=== PATIENT | male | born 1945 | race Caucasian/White ===

== ENCOUNTER 2016-06-25 09:47 | Emergency (ER) | payer MEDICARE, OTHER ==
[~2016-06-25] VITALS: Ht 166.4 cm; Wt 80.3 kg
[~2016-06-25 09:47] MED LIST: ACET325T9 PO; AMIO200T2 PO; ASPI81TA2 PO; CRESTOR20 MG PO; DABI150C PO; DIPH25CA58 PO; ESOM40CA PO; L.AC1CAP6 PO; LISI-338 PO; MELA3TAB PO; METO25TA4 PO; METO50TA2 PO; NEPA3DRO OP; OXYC-323 PO; OXYC5TAB PO; SUCR1ORA2 PO; TAMS0.4C2 PO; TRAM-29 PO; [UNRECOGNIZED DRUG - CODE] PO
[2016-06-25 09:50] VITALS: BP 134/88
--- NOTE | 2016-06-25 10:09 | ED.ADGEN ---
Past History Past Medical History: A-Fib, CAD, GERD, High Cholesterol, Hypertension, Hyperthyroid, Other Past Surgical History: Pacemaker, Other Smoking: Non-smoker Alcohol Use: Rarely Drug Use: None Adult General HPI HPI Patient is a 71-year-old male with an extensive cardiac history presents to the emergency department. He describes to me that he is having his chronic dizziness he has had since his pacemaker placement. He is currently under the care of an ENT and a accounts administrator. His dizziness today is not different than it has been. He also notes some right hand swelling. He states this is happened multiple times in the past and is not a new issue. The primary reason for coming to the emergency department today is that last night he ate at home which is unusual for him. He later had some epigastric "discomfort" and had difficulty sleeping through the night. This morning he had "severe" diarrhea. He denies any chest pain, dyspnea, abdominal pain, nausea, or vomiting. Review of Systems Review of Systems Constitutional: Denies fever or chills [] Eyes: Denies change in visual acuity, redness, or eye pain [] HENT: Denies nasal congestion or sore throat [] Respiratory: Denies cough or shortness of breath [] Cardiovascular: No additional information not addressed in HPI [] GI: Denies abdominal pain, nausea, vomiting, bloody stools or diarrhea [] : Denies dysuria or hematuria [] Musculoskeletal: Denies back pain or joint pain [] Integument: Denies rash or skin lesions [] Neurologic: Denies headache, focal weakness or sensory changes [] Endocrine: Denies polyuria or polydipsia [] Allergies Allergies Allergies Coded Allergies Type Severity Reaction Last Updated Verified clindamycin Allergy Intermediate rash 01/15/16 Yes morphine Allergy Intermediate vomiting 01/15/16 Yes Physical Exam Physical Exam Constitutional: Well developed, well nourished, no acute distress, non-toxic appearance. [] HENT: Normocephalic, atraumatic, bilateral external ears normal, oropharynx moist, no oral exudates, nose normal. [] Eyes: PERRLA, EOMI, conjunctiva normal, no discharge. [] Neck: Normal range of motion, no tenderness, supple, no stridor. [] Cardiovascular:Heart rate regular rhythm, no murmur [] Lungs & Thorax: Bilateral breath sounds clear to auscultation [] Abdomen: Bowel sounds normal, soft, no tenderness, no masses, no pulsatile masses. [] Skin: Warm, dry, no erythema, no rash. [] Back: No tenderness, no CVA tenderness. [] Extremities: No tenderness, no cyanosis, no clubbing, ROM intact, right hand has mild edema diffusely. [] Neurologic: Alert and oriented X 3, normal motor function, normal sensory function, no focal deficits noted. [] Psychologic: Affect normal, judgement normal, mood normal. [] Current Patient Data Lab Results Laboratory Tests Test 06/25/16 10:12 06/25/16 10:33 06/25/16 11:08 White Blood Count 4.2x10^3/uL (4.0-11.0) Red Blood Count 4.43x10^6/uL (4.30-5.70) Hemoglobin 13.9g/dL (13.0-17.5) Hematocrit 42.3% (39.0-53.0) Mean Corpuscular Volume 96fL (79-100) Mean Corpuscular Hemoglobin 31pg (25-35) Mean Corpuscular Hemoglobin Concent 33g/dL (31-37) Red Cell Distribution Width 13.4% (11.5-14.5) Platelet Count 198x10^3/uL (140-400) Neutrophils (%) (Auto) 44% (31-73) Lymphocytes (%) (Auto) 37% (24-48) Monocytes (%) (Auto) 10% (0-9) H Eosinophils (%) (Auto) 7% (0-3) H Basophils (%) (Auto) 2% (0-3) Neutrophils # (Auto) 1.9x10^3uL (1.8-7.7) Lymphocytes # (Auto) 1.6x10^3/uL (1.0-4.8) Monocytes # (Auto) 0.4x10^3/uL (0.0-1.1) Eosinophils # (Auto) 0.3x10^3/uL (0.0-0.7) Basophils # (Auto) 0.1x10^3/uL (0.0-0.2) Magnesium Level 2.3mg/dL (1.8-2.4) POC Hemoglobin 13.6gm/dL POC Hematocrit 40% POC Sodium 145mmol/L (135-145) POC Potassium 4.4mmol/L (3.5-5.0) POC Chloride 107mmol/L (98-110) POC Total CO2 24mmol/L (23-32) Anion Gap 20mmol/L (6-14) H POC Blood Urea Nitrogen 12mg/dL (8-26) POC Creatinine 1.2mg/dL (0.5-1.4) Glucose Level 95mg/dL (60-99) POC Ionized Calcium (Harper) 1.20mmol/L (1.13-1.32) Urine Collection Type Unknown Urine Color Yellow Urine Clarity Clear Urine pH 6.5 Urine Specific [place] 1.020 Urine Protein Neg (NEG-TRACE) Urine Glucose (UA) Negmg/dL (NEG) Urine Ketones (Stick) Negmg/dL (NEG) Urine Blood Neg (NEG) Urine Nitrite Neg (NEG) Urine Bilirubin Neg (NEG) Urine Urobilinogen Dipstick 2mg/dL (0.2 mg/dL) Urine Leukocyte Esterase Small (NEG) Urine RBC 1-2/HPF (0-2) Urine WBC 5-10/HPF (0-4) Urine Squamous Epithelial Cells Few/LPF Urine Bacteria Few/HPF (0-FEW) Urine Mucus Slight/LPF EKG EKG EKG interpreted by me, normal sinus rhythm, 82 beats for minute, leftward axis, right bundle-branch block, no ST segment elevation[] Radiology/Procedures Radiology/Procedures Indication chest pain. A single view of the chest was obtained and is compared to a study 03/16/2015. Postoperative changes and a bipolar cardiac pacing device are noted. The heart and pulmonary vessels are normal. The lungs are clear. There is no pleural fluid or pneumothorax. A significant change compared to the previous exam is not seen. IMPRESSION: No acute or significant finding apparent in the chest DICTATED AND SIGNED BY: JUAN SANCHEZ MD DATE: 06/25/16 1040 CC: MASON GALO MD; CORAZON RAND MD ~[] Course & Med Decision Making Course & Med Decision Making Pertinent Labs and Imaging studies reviewed. (See chart for details) Patient is a very reassuring workup. I do not find anything acute or abnormal. His hand swelling has resolved. At this point the patient is being sent home with supportive care and follow-up directions. [] Final Impression Final Impression Peripheral edema [] Problems: Dragon Disclaimer Dragon Disclaimer This electronic medical record was generated, in whole or in part, using a voice recognition dictation system. MASON GALO MD Jun 25, 2016 10:09
[2016-06-25 10:35] LABS: BASO # 0.1 x10^3/uL (0.0-0.2); BASO % 2 % (0-3); EOS # 0.3 x10^3/uL (0.0-0.7); EOS % 7 % (0-3); HEMATOCRIT 42.3 % (39.0-53.0); HEMOGLOBIN 13.9 g/dL (13.0-17.5); LYMPH # 1.6 x10^3/uL (1.0-4.8); LYMPH % 37 % (24-48); MEAN CORPUSCULAR HEMOGLOBIN 31 pg (25-35); MEAN CORPUSCULAR HGB CONC 33 g/dL (31-37); MEAN CORPUSCULAR VOLUME 96 fL (79-100); MONO # 0.4 x10^3/uL (0.0-1.1); MONO % 10 % (0-9); NEUT # 1.9 x10^3uL (1.8-7.7); NEUT % 44 % (31-73); PLATELET COUNT 198 x10^3/uL (140-400); RED BLOOD COUNT 4.43 x10^6/uL (4.30-5.70); RED CELL DISTRIBUTION WIDTH 13.4 % (11.5-14.5); WHITE BLOOD COUNT 4.2 x10^3/uL (4.0-11.0)
[2016-06-25 10:42] LABS: HEMOGLOBIN ISTAT 13.6 gm/dL; POTASSIUM ISTAT 4.4 mmol/L (3.5-5.0)
--- NOTE | 2016-06-25 10:43 | RAD ---
Indication chest pain. A single view of the chest was obtained and is compared to a study 03/16/2015. Postoperative changes and a bipolar cardiac pacing device are noted. The heart and pulmonary vessels are normal. The lungs are clear. There is no pleural fluid or pneumothorax. A significant change compared to the previous exam is not seen. IMPRESSION: No acute or significant finding apparent in the chest
[2016-06-25 11:49] LABS: BILIRUBIN,URINE NEG (NEG); CLARITY,URINE CLEAR; COLOR,URINE YELLOW; GLUCOSE,URINE NEG (NEG); NITRITE,URINE NEG (NEG); UROBILINOGEN,URINE 2 mg/dL (0.2 mg/dL)
[2016-06-25 11:50] LABS: BACTERIA,URINE FEW /HPF (0-FEW); SQUAMOUS EPITHELIAL CELL,UR FEW /LPF
--- NOTE | 2016-06-26 12:28 | EKG ---
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
== END 2016-06-25 11:40 | disposition home or self-care (01) ==
LOC: ER 09:47
DX: R60.0 Localized edema (principal); R42 Dizziness and giddiness; R19.7 Diarrhea, unspecified; E78.00 Pure hypercholesterolemia, unspecified; I10 Essential (primary) hypertension; I25.10 Atherosclerotic heart disease of native coronary artery without angina pectoris; I48.91 Unspecified atrial fibrillation; K21.9 Gastro-esophageal reflux disease without esophagitis; Z95.0 Presence of cardiac pacemaker; E05.90 Thyrotoxicosis, unspecified without thyrotoxic crisis or storm; Z88.1 Allergy status to other antibiotic agents; Z88.5 Allergy status to narcotic agent
CPT/HCPCS: 36415; 71010; 80047; 81001; 83735; 85027; 87086; 87186; 93005; 99285-25

== ENCOUNTER → 2016-12-27 | Outpatient (CLI) | payer MEDICARE, OTHER ==
[~2016-12-27] MED LIST changes: +ASPI-630 PO; -ASPI81TA2 PO; -MELA3TAB PO; +MELA3TAB2 PO; -OXYC5TAB PO; +OXYC5TAB95 PO; -SUCR1ORA2 PO; +SUCR1ORA5 PO; -TRAM-29 PO; +TRAM-48 PO
--- NOTE | 2016-12-27 11:24 | RAD ---
Examination: Ultrasound left lower extremity venous duplex History: History of left lower leg swelling, redness for 4 days. Comparison: None available Technique: Grayscale, color Doppler 2-D, spectral waveform analysis of the left lower extremity venous system were performed Findings: The visualized common femoral vein, superficial femoral vein, popliteal vein demonstrate normal compression and augmentation of flow. The visualized calf veins are patent. There is a small area of fall soft tissue edema identified in the left lateral calf region at the site of redness. Impression: 1. No evidence of deep venous thrombosis left lower extremity venous system. 2. Small area of soft tissue edema identified in the left lateral calf region could be secondary to soft tissue infection or cellulitis.
== END | disposition home or self-care (01) ==
LOC: US 10:23
PROVIDERS: ATTEND Nurse Practitioner Family
DX: R22.42 Localized swelling, mass and lump, left lower limb (principal)
CPT/HCPCS: 93971

== ENCOUNTER → 2017-05-05 | Outpatient (CLI) | payer MEDICARE, OTHER ==
[~2017-05-05] MED LIST changes: -METO50TA2 PO; +METO50TA6 PO
--- NOTE | 2017-05-05 15:47 | RAD ---
CT of the abdomen and pelvis without contrast, 05/05/2017: History: Left flank pain, hematuria Noncontrast scans were obtained through the urinary tract utilizing the renal stone protocol. This is a limited study for evaluation of the possibility of urinary tract calculi. There is a 6 mm obstructing calculus in the proximal left ureter at the L3-4 level. The ureter superior to this level and the left renal pelvis are mildly dilated. There is material of slightly increased density within the left renal pelvis probably representing hemorrhage or other debris in this patient with hematuria. No intrarenal calculi are identified. There is a 4.5 cm cyst arising from the lateral aspect of the left kidney. There is minimal periureteral edema on the left. The distal left ureter and partially filled urinary bladder are unremarkable. There is a 6.8 cm cyst arising from the lower pole of the right kidney. The right renal pelvis and ureter show no evidence of obstruction. There is minimal bilateral perinephric scarring and streaky edema. The unopacified liver is unremarkable. No dense gallstones are seen. No pancreatic mass is evident. There are several scattered pancreatic calcifications. The spleen is of normal size. There is moderate aortoiliac calcific plaquing. No abdominal or pelvic adenopathy is seen. The bowel loops are not dilated. No free air or free fluid is evident in the abdomen or pelvis. There are moderate scattered degenerative changes in the spine. IMPRESSION: 1. 6 mm obstructing calculus in the proximal left ureter. 2. Material of slightly increased density in the mildly dilated left renal pelvis probably represents blood products in this patient with hematuria. 3. Moderate-sized bilateral renal cysts. PQRS Compliance Statement: One or more of the following individualized dose reduction techniques were utilized for this examination: 1. Automated exposure control 2. Adjustment of the mA and/or kV according to patient size 3. Use of iterative reconstruction technique
== END | disposition home or self-care (01) ==
LOC: DXRAD 15:02
PROVIDERS: ATTEND Specialist
DX: N23 Unspecified renal colic (principal); N20.1 Calculus of ureter; N28.1 Cyst of kidney, acquired
CPT/HCPCS: 74176

== ENCOUNTER → 2017-06-20 | Outpatient (CLI) | payer MEDICARE, OTHER ==
--- NOTE | 2017-06-20 10:24 | CARD ---
MR#: [id number] Date of Study: 06/20/2017 Ordering Physician: FOREIGN DOMINGUEZ, Referring Physician: FOREIGN DOMINGUEZ, Tech: Elizabeth Duenas RDCS APPROVED REPORT EXAM: Two-dimensional and M-mode echocardiogram with Doppler and color Doppler. Other Information Quality : Fair INDICATION Dyspnea Cardiac Disease: CAD Surgery/Intervention CABG: Date: 2010 2D DIMENSIONS RVDd3.6 (2.9-3.5cm)Left Atrium(2D)3.9 (1.6-4.0cm) IVSd1.0 (0.7-1.1cm)Aortic Root(2D)3.2 (2.0-3.7cm) LVDd4.6 (3.9-5.9cm)LVOT Diameter2.1 (1.8-2.4cm) PWd1.1 (0.7-1.1cm)LVDs2.5 (2.5-4.0cm) FS (%) 30.0 %SV74.8 ml LVEF(%)60.0 (>50%) Aortic Valve AoV Peak Mike.103.6cm/sAoV VTI20.1cm AO Peak GR.4.3mmHgLVOT Peak Mike.113.1cm/s LVOT VTI 19.13cmAO Mean GR.2mmHg BETTE (VMAX)3.52qh3KCT (VTI)3.26cm2 Mitral Valve MV E Jgcfdqou68.1cm/sMV DECEL DFDV943qo MV A Zfqmmidm70.5cm/sE/A Ratio0.8 Tricuspid Valve TR P. Whsomeyg527zi/sRAP KWTEHLAO9lqDi TR Peak Gr.15wfPoWBVZ14aeAx Pulmonary Vein S1 Agllofnk64.1cm/sD2 Kwletvmw28.7cm/s LEFT VENTRICLE The left ventricle is normal size. There is normal left ventricular wall thickness. The left ventricu lar systolic function is normal. The Ejection Fraction is 55-60%. There is normal LV segmental wall m otion. Transmitral Doppler flow pattern is Grade I-abnormal relaxation pattern. RIGHT VENTRICLE The right ventricle is normal size. The right ventricular systolic function is normal. There is a pac emaker lead in the right ventricle. ATRIA The left atrium size is normal. The right atrium size is normal. A pacemaker is seen in the right atr ium consistent with history. The interatrial septum is intact with no evidence for an atrial septal d efect or patent foramen ovale as noted on 2-D or Doppler imaging. AORTIC VALVE The aortic valve is normal in structure and function. Doppler and Color Flow revealed no significant aortic regurgitation. There is no significant aortic valvular stenosis. MITRAL VALVE The mitral valve is calcified but opens well. There is no evidence of mitral valve prolapse. There is no mitral valve stenosis. Doppler and Color-flow revealed trace mitral regurgitation. TRICUSPID VALVE The tricuspid valve is normal in structure and function. Doppler and Color Flow revealed trace to mil d tricuspid regurgitation. There is mild pulmonary hypertension. The PA pressure was estimated at 33 mmHg. There is no tricuspid valve stenosis. PULMONIC VALVE The pulmonic valve is not well visualized. Doppler and Color Flow revealed no pulmonic valvular regur gitation. There is no pulmonic valvular stenosis. GREAT VESSELS The aortic root is normal in size. The ascending aorta is not well seen. The IVC is normal in size an d collapses >50% with inspiration. PERICARDIAL EFFUSION There is no evidence of significant pericardial effusion. Critical Notification Critical Value: No <Conclusion> The left ventricular systolic function is normal. The Ejection Fraction is 55-60%. There is normal LV segmental wall motion. Transmitral Doppler flow pattern is Grade I-abnormal relaxation pattern. A pacemaker is seen in the right atrium and righjt ventricle consistent with history. Trace mitral regurgitation. Trace to mild tricuspid regurgitation. There is mild pulmonary hypertension. The PA pressure was estimated at 33 mmHg. There is no evidence of significant pericardial effusion. Signed by : Arben Oakley, Electronically Approved : 06/20/2017 10:23:09
== END | disposition home or self-care (01) ==
LOC: ECHO 07:50
PROVIDERS: ATTEND Internal Medicine Cardiovascular Disease
DX: I25.10 Atherosclerotic heart disease of native coronary artery without angina pectoris (principal); I27.20 Pulmonary hypertension, unspecified; I36.1 Nonrheumatic tricuspid (valve) insufficiency; Z95.0 Presence of cardiac pacemaker
CPT/HCPCS: 93306

== ENCOUNTER 2019-04-12 15:48 | Emergency (ER) | payer MEDICARE, OTHER ==
[~2019-04-12] VITALS: Ht 165.1 cm; Wt 91.2 kg
[~2019-04-12 15:48] MED LIST changes: -AMIO200T2 PO; +AMIO200T4 PO; -MELA3TAB2 PO; +MELA3TAB56 PO; -OXYC-323 PO; +OXYC1TAB15 PO; +OXYC5TAB4 PO; -OXYC5TAB95 PO
[2019-04-12] MEDS ORDERED: IV NORMAL SALINE 1,000ML 1,000 ML IV ONE (16:00)
[2019-04-12] MEDS ORDERED: ONDANSETRON PF 4 MG/2 ML VIAL. IVP ONE (16:15)
--- NOTE | 2019-04-12 16:19 | PHYS DOC ---
Past History Past Medical History: A-Fib, CAD, COPD, GERD, High Cholesterol, Hypertension, Hyperthyroid, Other Past Surgical History: Coronary Bypass Surgery, Pacemaker, Other Smoking: Non-smoker Alcohol Use: None Drug Use: None Adult General Chief Complaint Chief Complaint: ABDOMINAL PAIN HPI HPI 74-year-old male presents with nausea, vomiting, and diarrhea. The patient has been vomiting since 8:00 this morning. He tells me he has not vomited in 30 years until today. Had multiple episodes. He feels generally worn out and weak at this point. He is not able to keep down any solids or liquids. He has some generalized abdominal cramping which started after the vomiting. He does not believe he is had a fever. No known sick contacts. He denies shortness of breath, chest pain or diaphoresis. He has no other complaints at this time. Review of Systems Review of Systems Constitutional: Denies fever or chills [] Eyes: Denies change in visual acuity, redness, or eye pain [] HENT: Denies nasal congestion or sore throat [] Respiratory: Denies cough or shortness of breath [] Cardiovascular: No additional information not addressed in HPI [] GI: Mild generalized abdominal pain, nausea, vomiting, diarrhea [] : Denies dysuria or hematuria [] Musculoskeletal: Denies back pain or joint pain [] Integument: Denies rash or skin lesions [] Neurologic: Denies headache, focal weakness or sensory changes [] Endocrine: Denies polyuria or polydipsia [] All other systems were reviewed and found to be within normal limits, except as documented in this note. Current Medications Current Medications Current Medications Medications (Trade) Dose Ordered Sig/Nathaly Start Time Stop Time Status Last Admin Dose Admin Ondansetron HCl (Zofran) 4 mg 1X ONCE 04/12/19 16:15 04/12/19 16:16 DC 04/12/19 16:10 4 MG Sodium Chloride 1,000 ml @ 1,000 mls/hr 1X ONCE 04/12/19 16:00 04/12/19 16:59 04/12/19 16:10 1,000 MLS/HR Allergies Allergies Allergies Coded Allergies Type Severity Reaction Last Updated Verified clindamycin Allergy Intermediate rash 04/12/19 Yes morphine Allergy Intermediate vomiting 04/12/19 Yes Physical Exam Physical Exam Constitutional: Well developed, well nourished, no acute distress, non-toxic appearance. [] HENT: Normocephalic, atraumatic, bilateral external ears normal, oropharynx moist, no oral exudates, nose normal. [] Eyes: PERRLA, EOMI, conjunctiva normal, no discharge. [] Neck: Normal range of motion, no tenderness, supple, no stridor. [] Cardiovascular:Heart rate regular rhythm, no murmur [] Lungs & Thorax: Bilateral breath sounds clear to auscultation [] Abdomen: Bowel sounds normal, soft, mild generalized tenderness, no masses, no pulsatile masses. [] Skin: Warm, dry, no erythema, no rash. [] Back: No tenderness, no CVA tenderness. [] Extremities: No tenderness, no cyanosis, no clubbing, ROM intact, no edema. [] Neurologic: Alert and oriented X 3, normal motor function, normal sensory function, no focal deficits noted. [] Psychologic: Affect normal, judgement normal, mood normal. [] Current Patient Data Vital Signs Vital Signs Date Time Temp Pulse Resp B/P (MAP) Pulse Ox O2 Delivery O2 Flow Rate FiO2 04/12/19 16:01 97.5 109 20 96 Room Air EKG EKG Sinus rhythm, rate 98, leftward axis couple) which will cover it was too elevations or depressions.[] Radiology/Procedures Radiology/Procedures [] Course & Med Decision Making Course & Med Decision Making Pertinent Labs and Imaging studies reviewed. (See chart for details) The patient's labs are significant for an elevated creatinine 1.8 and a mildly elevated anion gap. After reviewing his chart, these are higher than his normal, but his results are 5 years old in the system. I also believe that this is acute due to his violent vomiting and diarrhea. We'll give the patient 4 mg of Zofran and a liter of normal saline. He has not had anymore vomiting. He feels much better at this time. He would like to go home and continue to hydrate orally. I believe this is reasonable. [place] so he could call an ambulance if he needed one. His family is okay with this plan and will check on him. I will discharge him a prescription for Zofran and have advised him not to use it too much due to his cardiac history. He is stable for discharge at this time. [] Shaun Disclaimer Dragon Disclaimer This electronic medical record was generated, in whole or in part, using a voice recognition dictation system. Departure Departure: Impression: Primary Impression: Nausea & vomiting Additional Impressions: Dehydration Elevated serum creatinine Disposition: HOME, SELF-CARE Condition: STABLE Referrals: CORAZON RAND MD (PCP) Patient Instructions: Nausea and Vomiting, Epyi-yk-Snho Scripts Ondansetron (ONDANSETRON ODT) 4 Mg Tab.rapdis 1 TAB PO PRN Q6-8HRS PRN for VOMITING, #16 TAB Prov: RODOLFO WOODRUFF DO 04/12/19 Problem Qualifiers Primary Impression: Nausea & vomiting Vomiting type: unspecified Vomiting Intractability: intractable Qualified Codes: R11.2 - Nausea with vomiting, unspecified RODOLFO WOODRUFF DO Apr 12, 2019 16:19
[2019-04-12 16:31] LABS: BASO # 0.1 x10^3/uL (0.0-0.2); BASO % 1 % (0-3); EOS % 0 % (0-3); HEMATOCRIT 44.7 % (39.0-53.0); HEMOGLOBIN 15.3 g/dL (13.0-17.5); LYMPH # 0.2 x10^3/uL (1.0-4.8); LYMPH % 2 % (24-48); MEAN CORPUSCULAR HEMOGLOBIN 32 pg (25-35); MEAN CORPUSCULAR HGB CONC 34 g/dL (31-37); MEAN CORPUSCULAR VOLUME 94 fL (79-100); MONO # 0.5 x10^3/uL (0.0-1.1); MONO % 5 % (0-9); NEUT # 9.1 x10^3uL (1.8-7.7); NEUT % 92 % (31-73); PLATELET COUNT 191 x10^3/uL (140-400); RED BLOOD COUNT 4.75 x10^6/uL (4.30-5.70); RED CELL DISTRIBUTION WIDTH 13.7 % (11.5-14.5); WHITE BLOOD COUNT 9.9 x10^3/uL (4.0-11.0)
[2019-04-12 16:36] LABS: CALCIUM 8.5 mg/dL (8.5-10.1); CREATININE 1.8 mg/dL (0.7-1.3); GFR 36.9; POTASSIUM 4.3 mmol/L (3.5-5.1)
[2019-04-12 16:42] LABS: ALBUMIN 3.4 g/dL (3.4-5.0); ALBUMIN/GLOBULIN RATIO 0.8 (1.0-1.7); TOTAL BILIRUBIN 1.2 mg/dL (0.2-1.0); TOTAL PROTEIN 7.5 g/dL (6.4-8.2)
[2019-04-12 16:57] VITALS: BP 121/56
[2019-04-12] MEDS ORDERED: ONDA4TAB12 PO (17:13)
--- NOTE | 2019-04-12 17:21 | EKG ---
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
== END 2019-04-12 17:16 | disposition home or self-care (01) ==
LOC: ER 15:48
DX: E86.0 Dehydration (principal); R74.8 Abnormal levels of other serum enzymes; I48.91 Unspecified atrial fibrillation; I25.810 Atherosclerosis of coronary artery bypass graft(s) without angina pectoris; J44.9 Chronic obstructive pulmonary disease, unspecified; K21.9 Gastro-esophageal reflux disease without esophagitis; E78.00 Pure hypercholesterolemia, unspecified; I10 Essential (primary) hypertension; E03.9 Hypothyroidism, unspecified; Z95.0 Presence of cardiac pacemaker; Z88.1 Allergy status to other antibiotic agents; Z88.5 Allergy status to narcotic agent
CPT/HCPCS: 36415; 80053; 85025; 93005; 96361; 96374; 99285; J2405; J7030

== ENCOUNTER 2019-05-20 09:52 | Emergency (ER) | payer MEDICARE, OTHER ==
[~2019-05-20] VITALS: Ht 165.1 cm; Wt 86.3 kg
[~2019-05-20 09:52] MED LIST changes: +ONDA4TAB12 PO
[2019-05-20 10:13] VITALS: BP 147/57
[2019-05-20] MEDS ORDERED: 0.9 % SODIUM CHLORIDE 10 ML DISP.SYRIN. IV PRN (10:30)
--- NOTE | 2019-05-20 10:41 | RAD ---
EXAM: Chest, single view. HISTORY: Cough. COMPARISON: 06/25/2016 FINDINGS: A frontal view of the chest is obtained. There is no infiltrate, pleural effusion or pneumothorax. There is evidence of prior median sternotomy and cardiac pacemaker placement. The heart is normal in size for portable technique. IMPRESSION: No acute pulmonary finding. Electronically signed by: Kimberly Muñoz MD (05/20/2019 10:38 AM) [facility] [place]
[2019-05-20 10:57] LABS: BASO # 0.1 x10^3/uL (0.0-0.2); BASO % 1 % (0-3); EOS % 0 % (0-3); HEMATOCRIT 41.8 % (39.0-53.0); HEMOGLOBIN 13.8 g/dL (13.0-17.5); LYMPH # 0.7 x10^3/uL (1.0-4.8); LYMPH % 8 % (24-48); MEAN CORPUSCULAR HEMOGLOBIN 32 pg (25-35); MEAN CORPUSCULAR HGB CONC 33 g/dL (31-37); MEAN CORPUSCULAR VOLUME 97 fL (79-100); MONO # 0.9 x10^3/uL (0.0-1.1); MONO % 10 % (0-9); NEUT # 7.5 x10^3uL (1.8-7.7); NEUT % 82 % (31-73); PLATELET COUNT 166 x10^3/uL (140-400); RED BLOOD COUNT 4.31 x10^6/uL (4.30-5.70); RED CELL DISTRIBUTION WIDTH 14.3 % (11.5-14.5); WHITE BLOOD COUNT 9.2 x10^3/uL (4.0-11.0)
[2019-05-20 11:01] LABS: CALCIUM 8.8 mg/dL (8.5-10.1); CREATININE 1.6 mg/dL (0.7-1.3); GFR 42.2; POTASSIUM 4.3 mmol/L (3.5-5.1)
--- NOTE | 2019-05-20 11:05 | PHYS DOC ---
Past History Past Medical History: A-Fib, CAD, COPD, GERD, High Cholesterol, Hypertension, Hyperthyroid, [place], Other Past Surgical History: Coronary Bypass Surgery, Pacemaker, Other Additional Past Surgical Histo: stents Smoking: Non-smoker Alcohol Use: None Drug Use: None Adult General Chief Complaint Chief Complaint: WEAKNESS/GENERALIZED HPI HPI Patient is a 74-year-old man who was brought here by his family for evaluation of general weakness, body ache, fever and chill, not feeling well for the last few day. Patient had been dealing with some GIs problem including some nausea, diarrhea off and on for about 5 weeks. Patient was seen here initially last month for same problem, checkup was normal, he was discharged home. Patient went to see his family doctor, he was put on probiotic. Patient had not been on antibiotics recently. He continued to have diarrhea off and on. He feels weak and dehydrated so he called his daughter who brought him here for evaluation. Patient c/o of ntermittent abdominal cramping for several weeks as well. Patient denies any blood in his stool. He denies any chest pain, no trouble breathing, no headache, no neck pain, NO COUGH. Review of Systems Review of Systems Constitutional: Positive for fever or chills [] Eyes: Denies change in visual acuity, redness, or eye pain [] HENT: Denies nasal congestion or sore throat [] Respiratory: Denies cough or shortness of breath [] Cardiovascular: No additional information not addressed in HPI [] GI: Positive for abdominal pain, NO nausea, vomiting, bloody stools, POSITIVE FOR diarrhea [] : Denies dysuria or hematuria [] Musculoskeletal: Positive for bodyache, joint pain Integument: Denies rash or skin lesions [] Neurologic: Denies headache, focal weakness or sensory changes [] Endocrine: Denies polyuria or polydipsia [] All other systems were reviewed and found to be within normal limits, except as documented in this note. Current Medications Current Medications Current Medications Medications (Trade) Dose Ordered Sig/Nathaly Start Time Stop Time Status Last Admin Dose Admin Sodium Chloride (Normal Saline Flush) 10 ml QSHIFT PRN 05/20/19 10:30 Allergies Allergies Allergies Coded Allergies Type Severity Reaction Last Updated Verified clindamycin Allergy Intermediate rash 04/12/19 Yes morphine Allergy Intermediate vomiting 04/12/19 Yes Physical Exam Physical Exam Constitutional: Well developed, well nourished, no acute distress, non-toxic appearance. [] HENT: Normocephalic, atraumatic, bilateral external ears normal, oropharynx is dry, no oral exudates, nose normal. [] Eyes: PERRLA, EOMI, conjunctiva normal, no discharge. [] Neck: Normal range of motion, no tenderness, supple, no stridor. [] Cardiovascular:Heart rate regular rhythm, no murmur [] Lungs & Thorax: Bilateral breath sounds clear to auscultation [] Abdomen: Bowel sounds normal, soft, there is tenderness midabdominal area, no masses, no pulsatile masses. [] Skin: Warm, dry, no erythema, no rash. [] Back: No tenderness, no CVA tenderness. [] Extremities: No tenderness, no cyanosis, no clubbing, ROM intact, no edema. [] Neurologic: Alert and oriented X 3, normal motor function, normal sensory function, no focal deficits noted. [] Psychologic: Affect normal, judgement normal, mood normal. [] Current Patient Data Vital Signs Vital Signs Date Time Temp Pulse Resp B/P (MAP) Pulse Ox O2 Delivery O2 Flow Rate FiO2 05/20/19 10:13 100.1 86 18 147/57 (87) 95 Room Air Lab Results Laboratory Tests Test 05/20/19 10:31 White Blood Count 9.2 x10^3/uL (4.0-11.0) Red Blood Count 4.31 x10^6/uL (4.30-5.70) Hemoglobin 13.8 g/dL (13.0-17.5) Hematocrit 41.8 % (39.0-53.0) Mean Corpuscular Volume 97 fL (79-100) Mean Corpuscular Hemoglobin 32 pg (25-35) Mean Corpuscular Hemoglobin Concent 33 g/dL (31-37) Red Cell Distribution Width 14.3 % (11.5-14.5) Platelet Count 166 x10^3/uL (140-400) Neutrophils (%) (Auto) 82 % (31-73) H Lymphocytes (%) (Auto) 8 % (24-48) L Monocytes (%) (Auto) 10 % (0-9) H Eosinophils (%) (Auto) 0 % (0-3) Basophils (%) (Auto) 1 % (0-3) Neutrophils # (Auto) 7.5 x10^3uL (1.8-7.7) Lymphocytes # (Auto) 0.7 x10^3/uL (1.0-4.8) L Monocytes # (Auto) 0.9 x10^3/uL (0.0-1.1) Eosinophils # (Auto) 0.0 x10^3/uL (0.0-0.7) Basophils # (Auto) 0.1 x10^3/uL (0.0-0.2) Sodium Level 139 mmol/L (136-145) Potassium Level 4.3 mmol/L (3.5-5.1) Chloride Level 103 mmol/L (98-107) Carbon Dioxide Level 26 mmol/L (21-32) Anion Gap 10 (6-14) Blood Urea Nitrogen 14 mg/dL (8-26) Creatinine 1.6 mg/dL (0.7-1.3) H Estimated GFR (Cockcroft-Gault) 42.2 BUN/Creatinine Ratio 9 (6-20) Glucose Level 104 mg/dL (70-99) H Calcium Level 8.8 mg/dL (8.5-10.1) Total Bilirubin Pending Aspartate Amino Transferase (AST) Pending Alanine Aminotransferase (ALT) Pending Alkaline Phosphatase Pending [id number]-Type Natriuretic Peptide Pending Total Protein Pending Albumin Pending Albumin/Globulin Ratio Pending EKG EKG [] Radiology/Procedures Radiology/Procedures [][address] [address] IMAGING REPORT Signed PATIENT: MELYSSA CHASE LACCOUNT: [id number] : 1945 LOCATION: ER AGE: 74 SEX: M EXAM STATUS: REG ER ORD. PHYSICIAN: GEOVANI SCHMIDT DO REASON: COUGH PROCEDURE: PORTABLE CHEST 1V EXAM: Chest, single view. HISTORY: Cough. COMPARISON: 06/25/2016 FINDINGS: A frontal view of the chest is obtained. There is no infiltrate, pleural effusion or pneumothorax. There is evidence of prior median sternotomy and cardiac pacemaker placement. The heart is normal in size for portable technique. IMPRESSION: No acute pulmonary finding. Electronically signed by: Kimberly Wharton MD (05/20/2019 10:38 AM) [facility] [place] AND SIGNED BY: KIMBERLY WHARTON MD DATE: 05/20/19 1038 CC: CORAZON RAND MD; GEOVANI SCHMIDT DO ~ [place] [address] IMAGING REPORT Signed PATIENT: MELYSSA CHASE LACCOUNT: [id number] : 1945 LOCATION: ER AGE: 74 SEX: M EXAM STATUS: REG ER ORD. PHYSICIAN: GEOVANI SCHMIDT DO REASON: ABDOMINAL PAIN, FEVER PROCEDURE: CT ABDOMEN PELVIS WO CONTRAST Examination: CT ABDOMEN PELVIS WO CONTRAST History: Abdominal pain and fever Comparison/Correlation: 05/05/2017 CT abdomen and pelvis without contrast Findings: Axial images of the abdomen and pelvis were obtained without contrast. Sagittal and coronal reformatted images were provided. Marked coronary arterial calcification is present. Sternal wires are present. Pacemaker leads are visualized. Small hiatal hernia is present. Posterior basilar linear discoid atelectasis is present. Left posterior granulomas are stable. Diffuse fatty infiltration of the liver is present. Cholelithiasis is present. A few calculi are visualized near the gallbladder neck region. Spleen is unremarkable. Pancreas is normal. Adrenal glands are normal. Bilateral renal cysts are present. Right renal lower pole cyst measuring 7 cm is present. Multiple smaller left renal cysts are present. These appear similar upon comparison with the previous exam with no suspicious features. No further follow-up required. No radiopaque collecting system calculi or collecting system obstruction. No enlarged abdominal or pelvic lymph nodes. No bowel obstruction. Small umbilical hernia containing omental fat is present. Diverticulosis is present without findings of acute inflammation. Appendix is normal. Urinary bladder is unremarkable. Prostate gland is mildly enlarged measuring 5 cm transverse. Moderate L4-5 5 and L5-S1 disc space narrowing is present. Neural foraminal narrowing is present bilaterally at L4-5 of moderate extent. Concentric disc bulge with spinal canal stenosis is present at L4-5. Impression: Hiatal hernia. No suspicious collections or inflammatory findings on this noncontrast exam. Diverticulosis. Fatty infiltration of the liver. Cholelithiasis. No biliary dilatation. PQRS Compliance Statement: One or more of the following individualized dose reduction techniques were utilized for this examination: 1. Automated exposure control 2. Adjustment of the mA and/or kV according to patient size 3. Use of iterative reconstruction technique Electronically signed by: Marlon Steele MD (05/20/2019 12:06 PM) [facility] DICTATED AND SIGNED BY: MARLON STEELE MD DATE: 05/20/19 1206 CC: CORAZON RAND MD; GEOVANI SCHMIDT DO ~ [place] [address] IMAGING REPORT Signed PATIENT: MELYSSA CHASE LACCOUNT: [id number] : 1945 LOCATION: ER AGE: 74 SEX: M EXAM STATUS: REG ER ORD. PHYSICIAN: GEOVANI SCHMIDT DO REASON: upper abdominal pain PROCEDURE: ABDOMEN LTD CLINICAL HISTORY: Upper abdominal pain COMPARISON: CT 05/20/2019 TECHNIQUE: Limited ultrasound examination of the right upper quadrant of the abdomen was performed FINDINGS: Visualized portions of the pancreas are unremarkable. Liver: The liver measures 16.9 cm in length in the right mid clavicular line. The hepatic margin is smooth and the hepatic echogenicity is normal. There is no focal abnormality of the liver. Portal venous flow is confirmed. Gallbladder/Biliary: Gallstones are seen within the gallbladder neck, nonmobile. There is no wall thickening or pericholecystic fluid. There is no pain with direct transducer pressure over the gallbladder.The common bile duct measures 0.2 cm. The right kidney measures 10.7 cm in bipolar length. 5.9 cm right lower pole renal cystic lesion is seen. There is no free fluid in the subhepatic space. IMPRESSION: 1. Nonmobile gallstone within the gallbladder neck. No sonographic evidence for acute cholecystitis. 2. 5.9 cm right lower pole renal cyst lesion is seen. Electronically signed by: Wayne Graf MD (05/20/2019 1:15 PM) [id number] DICTATED AND SIGNED BY: WAYNE GRAF MD DATE: 05/20/19 1315 CC: CORAZON RAND MD; GEOVANI SCHMIDT DO ~ Course & Med Decision Making Course & Med Decision Making Pertinent Labs and Imaging studies reviewed. (See chart for details) Patient is a 74-year-old male who was evaluated in the ER due to general weakness, fever and chill, diarrhea. Workup in the ER did not find any acute problem. Patient was found to have gallstone, however there is No evidence of cholecystitis. Patient was found to be dehydrated, he was given IV fluid, he felt much better. His blood was cultured. He has had diarrhea off and on for several months, he is not on any antibiotic at home prior to the diarrhea episode. Patient stated that he knew he had back problem, he has cyst in his kidney, lesions in his lung. Also has history of hiatal hernia. Patient will be discharged home with his family, he will need to follow with a GI doctor for further evaluation of his abdominal problem. We will call him if the blood culture come back positive for any bacteria. Patient and his family were amenable to plan of care. He was discharged in stable condition. Dragon Disclaimer Dragon Disclaimer This electronic medical record was generated, in whole or in part, using a voice recognition dictation system. Departure Departure: Impression: Primary Impression: Dehydration Additional Impressions: Diarrhea Viral syndrome Disposition: 01 HOME, SELF-CARE Condition: STABLE Referrals: CORAZON RAND MD (PCP) follow up with your doctor in 2 days for reevaluation. Patient Instructions: Dehydration, Adult, Diarrhea, Viral Syndrome Additional Instructions: Thank you for visiting our Emergency Department. We appreciate you trusting us with your care. If any additional problems come up don't hesitate to return to visit us. Please follow up with your primary care provider so they can plan additional care if needed and know about the problem that you had. If symptoms worsen come back to the Emergency Department. Any concerning symptoms that start such as chest pain, shortness of air, weakness or numbness on one side of the body, running high fevers or any other concerning symptoms return to the ER. Problem Qualifiers GEOVANI SCHMIDT DO May 20, 2019 11:05
[2019-05-20 11:14] LABS: ALBUMIN 3.4 g/dL (3.4-5.0); ALBUMIN/GLOBULIN RATIO 0.8 (1.0-1.7); TOTAL PROTEIN 7.5 g/dL (6.4-8.2)
[2019-05-20 11:15] LABS: INFLUENZA A PATIENT NEGATIVE (NEGATIVE); INFLUENZA B PATIENT NEGATIVE (NEGATIVE)
[2019-05-20] MEDS ORDERED: IV NORMAL SALINE 1,000ML 1,000 ML IV ONE (11:30)
[2019-05-20] MEDS ORDERED: ACETAMINOPHEN 500 MG TABLET PO ONE (11:30)
[2019-05-20 11:46] LABS: BILIRUBIN,URINE NEG (NEG); CLARITY,URINE HAZY; COLOR,URINE AMBER; GLUCOSE,URINE NEG (NEG)
[2019-05-20 11:47] LABS: BACTERIA,URINE FEW /HPF (0-FEW); NITRITE,URINE NEG (NEG); SQUAMOUS EPITHELIAL CELL,UR FEW /LPF
--- NOTE | 2019-05-20 12:08 | RAD ---
Examination: CT ABDOMEN PELVIS WO CONTRAST History: Abdominal pain and fever Comparison/Correlation: 05/05/2017 CT abdomen and pelvis without contrast Findings: Axial images of the abdomen and pelvis were obtained without contrast. Sagittal and coronal reformatted images were provided. Marked coronary arterial calcification is present. Sternal wires are present. Pacemaker leads are visualized. Small hiatal hernia is present. Posterior basilar linear discoid atelectasis is present. Left posterior granulomas are stable. Diffuse fatty infiltration of the liver is present. Cholelithiasis is present. A few calculi are visualized near the gallbladder neck region. Spleen is unremarkable. Pancreas is normal. Adrenal glands are normal. Bilateral renal cysts are present. Right renal lower pole cyst measuring 7 cm is present. Multiple smaller left renal cysts are present. These appear similar upon comparison with the previous exam with no suspicious features. No further follow-up required. No radiopaque collecting system calculi or collecting system obstruction. No enlarged abdominal or pelvic lymph nodes. No bowel obstruction. Small umbilical hernia containing omental fat is present. Diverticulosis is present without findings of acute inflammation. Appendix is normal. Urinary bladder is unremarkable. Prostate gland is mildly enlarged measuring 5 cm transverse. Moderate L4-5 5 and L5-S1 disc space narrowing is present. Neural foraminal narrowing is present bilaterally at L4-5 of moderate extent. Concentric disc bulge with spinal canal stenosis is present at L4-5. Impression: Hiatal hernia. No suspicious collections or inflammatory findings on this noncontrast exam. Diverticulosis. Fatty infiltration of the liver. Cholelithiasis. No biliary dilatation. PQRS Compliance Statement: One or more of the following individualized dose reduction techniques were utilized for this examination: 1. Automated exposure control 2. Adjustment of the mA and/or kV according to patient size 3. Use of iterative reconstruction technique Electronically signed by: Marlon Carvajal MD (05/20/2019 12:06 PM) [facility]
--- NOTE | 2019-05-20 13:18 | RAD ---
CLINICAL HISTORY: Upper abdominal pain COMPARISON: CT 05/20/2019 TECHNIQUE: Limited ultrasound examination of the right upper quadrant of the abdomen was performed FINDINGS: Visualized portions of the pancreas are unremarkable. Liver: The liver measures 16.9 cm in length in the right mid clavicular line. The hepatic margin is smooth and the hepatic echogenicity is normal. There is no focal abnormality of the liver. Portal venous flow is confirmed. Gallbladder/Biliary: Gallstones are seen within the gallbladder neck, nonmobile. There is no wall thickening or pericholecystic fluid. There is no pain with direct transducer pressure over the gallbladder.The common bile duct measures 0.2 cm. The right kidney measures 10.7 cm in bipolar length. 5.9 cm right lower pole renal cystic lesion is seen. There is no free fluid in the subhepatic space. IMPRESSION: 1. Nonmobile gallstone within the gallbladder neck. No sonographic evidence for acute cholecystitis. 2. 5.9 cm right lower pole renal cyst lesion is seen. Electronically signed by: Wayne Bee MD (05/20/2019 1:15 PM) [id number]
--- NOTE | 2019-05-20 13:59 | EKG ---
[address] [address] Test Date: 2019-05-20 Test Time: 10:57:56 Pat Name: MELYSSA CHASE Department: Room: Gender: M Production Grip: : 1945 Requested By: GEOVANI SCHMIDT Order Number: [id number] Reading MD: Measurements Intervals [place] Rate: 80 P: 41 ME: 190 QRS: 43 QRSD: 126 T: 36 QT: 368 QTc: 428 Interpretive Statements SINUS RHYTHM ATRIAL PREMATURE COMPLEX(ES) RIGHT BUNDLE BRANCH BLOCK RVH WITH REPOLARIZATION ABNORMALITY ABNORMAL ECG RI6.01 No previous ECG available for comparison
[2019-05-21] MEDS ORDERED: TIOT18CA IH (13:33)
[2019-05-21] MEDS ORDERED: TAMS0.4C97 PO (13:33)
[2019-05-21] MEDS ORDERED: OMEP20CA16 PO (13:33)
== END 2019-05-20 14:51 | disposition home or self-care (01) ==
LOC: ER 09:52
DX: E86.0 Dehydration (principal); B34.9 Viral infection, unspecified; I48.91 Unspecified atrial fibrillation; I25.10 Atherosclerotic heart disease of native coronary artery without angina pectoris; J44.9 Chronic obstructive pulmonary disease, unspecified; K21.9 Gastro-esophageal reflux disease without esophagitis; E78.5 Hyperlipidemia, unspecified; I10 Essential (primary) hypertension; I25.2 Old myocardial infarction; Z95.1 Presence of aortocoronary bypass graft; Z88.1 Allergy status to other antibiotic agents; Z88.5 Allergy status to narcotic agent
CPT/HCPCS: 36415; 71045; 74176; 76705; 80053; 81001; 83605; 83880; 84484; 85025; 85610; 85730; 87040; 87077; 87205; 87804; 93005; 96360; 99285; J7030

== ENCOUNTER 2019-05-21 09:22 | Inpatient (IN) | payer MEDICARE, OTHER ==
[~2019-05-21] VITALS: Ht 157.5 cm; Wt 92.4 kg
[2019-05-21] MEDS ORDERED: ONDANSETRON PF 4 MG/2 ML VIAL. IV PRN (09:45)
--- NOTE | 2019-05-21 09:47 | PHYS DOC ---
Past History Past Medical History: A-Fib, CAD, COPD, GERD, High Cholesterol, Hypertension, Hyperthyroid, [place], Other Past Surgical History: Coronary Bypass Surgery, Pacemaker, Other Additional Past Surgical Histo: stents Smoking: Non-smoker Alcohol Use: None Drug Use: None Adult General Chief Complaint Chief Complaint: ABNORMAL LABS [facility] [employer] HPI Patient is a 74-year-old male who was called back here due to positive blood culture, he was seen here yesterday due to fever and chill, his blood was collected, today IT came back positive for GRAM POSITIVE COCCI IN PAIRS AND CHAINS, SUGGESTIVE OF STREP, He said he is feeling better, but he still feels hot and chill. Denies any cough, no fever today, no headache, no chest pain, no abdominal pain, no trouble breathing. Review of Systems Review of Systems Constitutional: Denies fever , positive for chills [] Eyes: Denies change in visual acuity, redness, or eye pain [] HENT: Denies nasal congestion or sore throat [] Respiratory: Denies cough or shortness of breath [] Cardiovascular: No additional information not addressed in HPI [] GI: Denies abdominal pain, nausea, vomiting, bloody stools or diarrhea [] : Denies dysuria or hematuria [] Musculoskeletal: Denies back pain or joint pain [] Integument: Denies rash or skin lesions [] Neurologic: Denies headache, focal weakness or sensory changes [] Endocrine: Denies polyuria or polydipsia [] All other systems were reviewed and found to be within normal limits, except as documented in this note. Current Medications Current Medications Current Medications Medications (Trade) Dose Ordered Sig/Nathaly Start Time Stop Time Status Last Admin Dose Admin Ceftriaxone Sodium 1 gm/ Sodium Chloride 50 ml @ 100 mls/hr 1X ONCE 05/21/19 10:00 05/21/19 10:29 Ondansetron HCl (Zofran) 4 mg PRN Q4HRS PRN 05/21/19 09:45 05/22/19 09:44 Sodium Chloride 1,000 ml @ 75 mls/hr [id number] 05/21/19 09:43 05/22/19 09:42 Allergies Allergies Allergies Coded Allergies Type Severity Reaction Last Updated Verified clindamycin Allergy Intermediate rash 04/12/19 Yes morphine Allergy Intermediate vomiting 04/12/19 Yes Physical Exam Physical Exam Constitutional: Well developed, well nourished, no acute distress, non-toxic appearance. [] HENT: Normocephalic, atraumatic, bilateral external ears normal, oropharynx moist, no oral exudates, nose normal. [] Eyes: PERRLA, EOMI, conjunctiva normal, no discharge. [] Neck: Normal range of motion, no tenderness, supple, no stridor. [] Cardiovascular:Heart rate regular rhythm, no murmur [] Lungs & Thorax: Bilateral breath sounds clear to auscultation [] Abdomen: Bowel sounds normal, soft, no tenderness, no masses, no pulsatile masses. [] Skin: Warm, dry, no erythema, no rash. [] Back: No tenderness, no CVA tenderness. [] Extremities: No tenderness, no cyanosis, no clubbing, ROM intact, no edema. [] Neurologic: Alert and oriented X 3, normal motor function, normal sensory function, no focal deficits noted. [] Psychologic: Affect normal, judgement normal, mood normal. [] Current Patient Data Lab Results Laboratory Tests Test 05/21/19 09:37 White Blood Count 9.3 x10^3/uL Red Blood Count 4.21 x10^6/uL Hemoglobin 13.4 g/dL Hematocrit 40.5 % Mean Corpuscular Volume 96 fL Mean Corpuscular Hemoglobin 32 pg Mean Corpuscular Hemoglobin Concent 33 g/dL Red Cell Distribution Width 14.0 % Platelet Count 150 x10^3/uL Neutrophils (%) (Auto) 73 % Lymphocytes (%) (Auto) 12 % Monocytes (%) (Auto) 14 % Eosinophils (%) (Auto) 0 % Basophils (%) (Auto) 0 % Neutrophils # (Auto) 6.8 x10^3uL Lymphocytes # (Auto) 1.2 x10^3/uL Monocytes # (Auto) 1.3 x10^3/uL Eosinophils # (Auto) 0.0 x10^3/uL Basophils # (Auto) 0.0 x10^3/uL Sodium Level 138 mmol/L Potassium Level 4.1 mmol/L Chloride Level 103 mmol/L Carbon Dioxide Level 23 mmol/L Anion Gap 12 Blood Urea Nitrogen 16 mg/dL Creatinine 1.5 mg/dL Estimated GFR (Cockcroft-Gault) 45.5 BUN/Creatinine Ratio 11 Glucose Level 92 mg/dL Lactic Acid Level 1.6 mmol/L Calcium Level 8.2 mg/dL Magnesium Level 1.9 mg/dL Total Bilirubin 2.3 mg/dL Aspartate Amino Transf (AST/SGOT) 54 U/L Alanine Aminotransferase (ALT/SGPT) 34 U/L Alkaline Phosphatase 59 U/L Total Protein 7.1 g/dL Albumin 3.4 g/dL Albumin/Globulin Ratio 0.9 Current Medications Medications (Trade) Dose Ordered Sig/Nathaly Route PRN Reason Start Time Stop Time Status Last Admin Dose Admin Ceftriaxone Sodium 1 gm/ Sodium Chloride 50 ml @ 100 mls/hr 1X ONCE IV 05/21/19 10:00 05/21/19 10:29 DC 05/21/19 10:06 Ondansetron HCl (Zofran) 4 mg PRN Q4HRS PRN IV NAUSEA/VOMITING 05/21/19 09:45 05/22/19 09:44 05/21/19 10:06 Sodium Chloride 1,000 ml @ 75 mls/hr [id number] IV 05/21/19 09:43 05/22/19 09:42 05/21/19 10:05 Sodium Chloride 50 ml @ As Directed STK-MED ONCE .ROUTE 05/21/19 10:00 05/21/19 10:00 DC Ceftriaxone Sodium (Rocephin) 1 gm STK-MED ONCE .ROUTE 05/21/19 10:00 05/21/19 10:01 DC Acetaminophen (Tylenol) 650 mg QID PO 05/21/19 17:00 Aspirin (Children'S Aspirin) 81 mg DAILY PO 05/22/19 09:00 Dabigatran (Pradaxa) 150 mg BID PO 05/21/19 21:00 Diphenhydramine HCl (Benadryl) 25 mg QHS PO 05/21/19 21:00 UNV Metoprolol Tartrate (Lopressor) 25 mg BID PO 05/21/19 21:00 Metoprolol Tartrate (Lopressor) 2,500 mg DAILY PO 05/22/19 09:00 05/21/19 14:51 DC Ondansetron HCl (Zofran Odt) 4 mg Q4H PRN PO VOMITING 05/21/19 14:00 UNV Tamsulosin HCl (Flomax) 0.4 mg DAILY PO 05/22/19 09:00 Non-Formulary Medication (Esomeprazole Magnesium (Nexium Capsule)) 40 mg DAILYBFRLUN PO 05/22/19 11:30 UNV Non-Formulary Medication (Omeprazole ) 1 cap QODAY PO 05/23/19 09:00 UNV Atorvastatin Calcium (Lipitor) 80 mg QHS PO 05/21/19 21:00 Non-Formulary Medication (Tiotropium [place] (Spiriva)) 1 cap DAILY IH 05/22/19 09:00 UNV Lactobacillus Rhamnosus (Culturelle) 1 cap BID PO 05/21/19 21:00 Albuterol/ Ipratropium (Duoneb) 3 ml RTQID NEB 05/21/19 16:00 UNV EKG EKG [] Radiology/Procedures Radiology/Procedures [] Course & Med Decision Making Course & Med Decision Making Pertinent Labs and Imaging studies reviewed. (See chart for details) He is a 74-year-old male who was tested positive for gram-positive cocci, he will be admitted to hospital due to bacteremia, will be started IV Rocephin in the ER, further treatment will be dependent upon on the admitting physician, Dr. Elmore. Dragon Disclaimer Dragon Disclaimer This electronic medical record was generated, in whole or in part, using a voice recognition dictation system. Departure Departure: Impression: Primary Impression: Bacteremia Additional Impression: Bacteremia due to Gram-positive bacteria Disposition: ADMITTED INPATIENT Admitting Physician: Michael Elmore Condition: STABLE Referrals: CORAZON RAND MD (PCP) Problem Qualifiers GEOVANI SCHMIDT DO May 21, 2019 09:47
[2019-05-21 09:56] LABS: BASO % 0 % (0-3); EOS % 0 % (0-3); HEMATOCRIT 40.5 % (39.0-53.0); HEMOGLOBIN 13.4 g/dL (13.0-17.5); LYMPH # 1.2 x10^3/uL (1.0-4.8); LYMPH % 12 % (24-48); MEAN CORPUSCULAR HEMOGLOBIN 32 pg (25-35); MEAN CORPUSCULAR HGB CONC 33 g/dL (31-37); MEAN CORPUSCULAR VOLUME 96 fL (79-100); MONO # 1.3 x10^3/uL (0.0-1.1); MONO % 14 % (0-9); NEUT # 6.8 x10^3uL (1.8-7.7); NEUT % 73 % (31-73); PLATELET COUNT 150 x10^3/uL (140-400); RED BLOOD COUNT 4.21 x10^6/uL (4.30-5.70); WHITE BLOOD COUNT 9.3 x10^3/uL (4.0-11.0)
[2019-05-21] MEDS ORDERED: IV NORMAL SALINE 50ML 50 ML ONE (10:00)
[2019-05-21] MEDS ORDERED: cefTRIAXone SODIUM 1 GM VIAL ONE (10:00)
[2019-05-21] MEDS: IV NORMAL SALINE 1,000ML 1,000 ML IV SCH (10:05)
[2019-05-21 10:06] LABS: CALCIUM 8.2 mg/dL (8.5-10.1); CREATININE 1.5 mg/dL (0.7-1.3); GFR 45.5; POTASSIUM 4.1 mmol/L (3.5-5.1)
[2019-05-21 10:13] LABS: ALBUMIN 3.4 g/dL (3.4-5.0); ALBUMIN/GLOBULIN RATIO 0.9 (1.0-1.7); MAGNESIUM 1.9 mg/dL (1.8-2.4); TOTAL BILIRUBIN 2.3 mg/dL (0.2-1.0); TOTAL PROTEIN 7.1 g/dL (6.4-8.2)
[2019-05-21 11:52] VITALS: BP 137/76
[2019-05-21] MEDS ORDERED: TIOT18CA IH (13:33)
[2019-05-21] MEDS ORDERED: OMEP20CA16 PO (13:33)
[2019-05-21] MEDS ORDERED: TAMS0.4C97 PO (13:33)
[2019-05-21] MEDS ORDERED: ONDANSETRON ODT 4 MG TAB.RAPDIS PO PRN (14:00)
[2019-05-21 14:38] VITALS: BP 108/67
--- NOTE | 2019-05-21 15:09 | HP ---
ADMIT DATE: 05/21/2019 HISTORY OF PRESENT ILLNESS: The patient is a 74-year-old male patient who apparently was seen yesterday in the Emergency Room with a complaint of generalized weakness and body aches, fever and chills, not feeling well for the last few days. The patient had been dealing with GI problems including some nausea and diarrhea off and on for about 5 weeks. He was seen initially about a month ago for the same problem. Checkup was normal. He was discharged home. The patient went to see his family doctor and he was put on probiotic. The patient has not been on antibiotic recently. He continued to have diarrhea off and on. He feels weak and dehydrated, so he called his daughter who brought him to the Emergency Room. He did complain intermittently of abdominal cramping for several weeks as well. The patient denies any blood in his stool. He was basically extensively evaluated in the Emergency Room. His lab work showed his white cell count was normal. His chemistry was remarkable for impaired kidney function, serum creatinine 1.6. His lactic acid was normal and his urinalysis was essentially unremarkable and his influenza A and B were negative. He did have a chest x-ray, which showed no acute pulmonary finding. Abdomen and pelvis CT scan without contrast showed that the patient has hiatal hernia, no suspicious collection or inflammatory finding on this noncontrast exam. He has diverticulosis, fatty infiltration of the liver. He has cholelithiasis with no biliary dilatation. The abdominal ultrasound showed that the liver measures 16.9 cm in length in the right midclavicular line, hepatic margin is smooth and hepatic echogenicity is normal. There is no focal abnormality of the liver, portal venous flow is confirmed. His gallbladder and biliary tree showed gallstones are seen within the gallbladder neck and mobile. There is no wall thickening, no pericholecystic fluid. There is no pain on direct transducer pressure over the gallbladder, common bile duct measures only 0.2 cm. The right kidney measures 10.7 cm and bipolar length ____ cm. Right lower pole renal cystic lesion is seen. There is no free fluid in the subhepatic space. The patient has also had blood cultures sent and apparently was discharged home where he was apparently rehydrated and was sent home. Apparently, his blood cultures were positive. There were gram-positive cocci in pairs and chains suggestive of streptococcus in 4/4 bottles, 2 sets drawn ____ patient was called back and was evaluated again. His white cell count remains normal. His lactic acid was 1.6. His bilirubin and AST slightly higher and was admitted for inpatient treatment. PAST MEDICAL HISTORY: Significant for hypertension, hyperlipidemia, coronary artery disease, status post PCI with stent deployment. He has also coronary artery disease, status post coronary artery bypass graft surgery, atrial fibrillation, atrial flutter, chronic obstructive pulmonary disease, obstructive sleep apnea, benign prostatic hypertrophy, and generalized osteoarthritis. He has also chronic low back pain and degenerative disk disease. PAST SURGICAL HISTORY: Significant for PCI with stent deployment type 4. Coronary artery bypass graft surgery, permanent pacemaker placement, cataract extraction of the right eye, spinal epidural steroid injection multiple times. He has also EGD and colonoscopy. ALLERGIES: He is allergic to CLINDAMYCIN and MORPHINE. MEDICATIONS: He is currently on following medications: He is on diphenhydramine 25 mg at bedtime, Spiriva HandiHaler 1 inhalation once a day, tamsulosin 0.4 mg at bedtime, Pradaxa 150 mg twice a day, Crestor 20 mg at bedtime, metoprolol tartrate 50 mg daily. He is on aspirin 81 mg once a day, acetaminophen 650 mg 4 times a day, ondansetron ODT 4 mg every 6-8 hours, Nexium 40 mg daily, omeprazole 20 mg every other day, probiotic 1 capsule once a day. FAMILY HISTORY: He has one brother older and alive at age of 78, had bilateral hip replacement. His father at the age of 81 because of massive CVA. Mother at age of 86 because of COPD. SOCIAL HISTORY: He is , has 1 daughter and 1 son. He is an ex-smoker, quit in 2010, smoked 1 pack a day for almost 40 years. He does not drink alcohol. 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 He lives alone, is fairly independent, continues to drive his car and do his own shopping. REVIEW OF SYSTEMS: The patient has cataract extraction, has also what seemed to be either scotomas or retinal detachment. He is hard of hearing. Has had intermittent episodes of nausea, vomiting as well as diarrhea. The last one was last Monday. Denied any hematemesis, melena, hematochezia. Denied any dysuria, frequency or hematuria. Denied any chest pain, shortness of breath, orthopnea, paroxysmal nocturnal dyspnea. Denied any cough, phlegm or hemoptysis. PHYSICAL EXAMINATION: GENERAL: When I examined him, he looked well and was clearly in no apparent respiratory distress. There is no pallor, jaundice, cyanosis or thyromegaly. No jugular venous distention. No lower limb edema. VITAL SIGNS: His heart rate was 76, blood pressure was 113/69, temperature was 98.3, respiratory rate was 18 and oxygen saturation was 94% on room air. HEAD, EYES, EARS, NOSE AND THROAT: Showed normocephalic, atraumatic. NECK: Supple. HEART: Showed normal first and second heart sounds. No gallop, rub or murmur. CHEST: Clear to auscultation. No crepitation or rhonchi. ABDOMEN: Distended, soft, nontender. No guarding or rigidity. No organomegaly. All hernial orifice intact. Bowel sounds normal. NEUROLOGIC: He is awake, alert, responding appropriately. All cranial nerves intact. EXTREMITIES: He moves extremities without difficulty. He does have weakness of both lower extremities and can walk for short distances without assistance or assistive devices. He does have a cane that he does not use. LABORATORY DATA: His lab work on arrival today showed a white cell count of 9300, hemoglobin 13.4, hematocrit 40, MCV 96, and platelet count of 150,000. His chemistry showed a serum sodium 138, potassium 4.1, chloride 103, bicarbonate 23, anion gap of 12, BUN 16, creatinine 1.5, estimated GFR was 45 mL per minute. His glucose was 92, lactic acid 1.6, serum calcium was 8.2, magnesium was 1.9. Total bilirubin is 2.3. AST was 54, ALT was 34 and alkaline phosphatase was 59. Total protein was 7.1, albumin was 3.4. The imaging studies were done yesterday and showed that her abdominal ultrasound showed nonmobile gallstone within the gallbladder neck, no sonographic evidence of acute cholecystitis, has a 5.9 cm right lower pole renal cyst lesion seen. The CT scan of the abdomen and pelvis showed that the patient has hiatal hernia, no suspicious collection or inflammatory finding on this noncontrast exam, has diverticulosis, fatty infiltration of the liver, cholelithiasis, no biliary dilatation and his chest x-ray showed that there is no infiltrate, pleural effusion, or pneumothorax. There is evidence of prior median sternotomy or cardiac pacemaker placement. The heart is normal in size for portable technique. The patient has no enlarged abdominal or pelvic lymph nodes. No bowel obstruction, small umbilical hernia containing omental fat is present. Diverticulosis is present without finding of acute inflammation. Appendix is normal. Urinary bladder is unremarkable. Prostate gland is mildly enlarged measuring 5 cm in transverse. The patient has moderate L4-L5 and L5-S1 disk space narrowing is present, neural foramina narrowing is present bilaterally at L4-L5 with moderate extent chronic disk bulge with spinal canal stenosis present at L4-L5. Given the fact that the patient has 4 positive blood culture in all 4 bottles, the patient was admitted. He will be started on IV fluid, IV antibiotic. I will probably change antibiotic to Zyvox and Zosyn and we will deescalate the antibiotic once we find the source of his infection and the identification and sensitivity becomes available. BRISEIDA CA MD DR: RAYMOND/vladimir JOB#: [id number] / [id number]
[2019-05-21] MEDS: IPRATRPIUM/ALBUTEROL 0.5/2.5MG 3 ML NEBU. NEB SCH ×2 (16:31→21:51)
[2019-05-21] MEDS: ACETAMINOPHEN 325 MG TABLET PO SCH ×2 (17:32→21:00)
[2019-05-21] MEDS ORDERED: PIP/TAZO PER PHARMACY MC PRN (18:00)
[2019-05-21 18:35] VITALS: BP 126/66
[2019-05-21] MEDS: PIPERACILLIN/TAZOBACTAM 3.375 GM in IV NORMAL SALINE 50ML 50 ML IV SCH (19:27)
[2019-05-21] MEDS ORDERED: ATORVASTATIN CALCIUM 20 MG TABLET PO SCH (21:00)
[2019-05-21] MEDS: METOPROLOL TART IMMED RELEASE 25 MG TABLET PO SCH (21:01)
[2019-05-21] MEDS: LACTOBACILLUS RHAMNOSUS GG 1 CAPSULE. PO SCH (21:01)
[2019-05-21] MEDS: DABIGATRAN ETEXILATE 150 MG CAPSULE. PO SCH (21:01)
[2019-05-21 22:57] VITALS: BP 95/54
[2019-05-22] MEDS: IV NORMAL SALINE 1,000ML 1,000 ML IV SCH (00:44)
[2019-05-22] MEDS: PIPERACILLIN/TAZOBACTAM 3.375 GM in IV NORMAL SALINE 50ML 50 ML IV SCH ×4 (00:44→18:02)
[2019-05-22] MEDS ORDERED: ATOR20TA58 PO (00:56)
[2019-05-22] MEDS ORDERED: DRON400T PO (00:56)
[2019-05-22] MEDS ORDERED: METO25TA4 PO (00:57)
[2019-05-22] MEDS: IPRATRPIUM/ALBUTEROL 0.5/2.5MG 3 ML NEBU. NEB SCH ×4 (05:01→20:54)
[2019-05-22 05:17] VITALS: BP 125/70
[2019-05-22 06:38] LABS: BASO % 0 % (0-3); EOS # 0.1 x10^3/uL (0.0-0.7); EOS % 2 % (0-3); HEMATOCRIT 36.1 % (39.0-53.0); HEMOGLOBIN 11.7 g/dL (13.0-17.5); LYMPH # 1.1 x10^3/uL (1.0-4.8); LYMPH % 20 % (24-48); MEAN CORPUSCULAR HEMOGLOBIN 32 pg (25-35); MEAN CORPUSCULAR HGB CONC 33 g/dL (31-37); MEAN CORPUSCULAR VOLUME 97 fL (79-100); MONO # 0.8 x10^3/uL (0.0-1.1); MONO % 15 % (0-9); NEUT # 3.6 x10^3uL (1.8-7.7); NEUT % 64 % (31-73); PLATELET COUNT 123 x10^3/uL (140-400); RED BLOOD COUNT 3.73 x10^6/uL (4.30-5.70); RED CELL DISTRIBUTION WIDTH 13.8 % (11.5-14.5); WHITE BLOOD COUNT 5.7 x10^3/uL (4.0-11.0)
[2019-05-22 06:51] LABS: ALBUMIN 2.6 g/dL (3.4-5.0); ALBUMIN/GLOBULIN RATIO 0.7 (1.0-1.7); CALCIUM 7.6 mg/dL (8.5-10.1); CREATININE 1.3 mg/dL (0.7-1.3); GFR 53.7; POTASSIUM 3.4 mmol/L (3.5-5.1); TOTAL BILIRUBIN 1.2 mg/dL (0.2-1.0); TOTAL PROTEIN 6.2 g/dL (6.4-8.2)
[2019-05-22] MEDS: DABIGATRAN ETEXILATE 150 MG CAPSULE. PO SCH ×2 (08:00→20:31)
[2019-05-22] MEDS: ASPIRIN 81 MG TAB.CHEW PO SCH (08:00)
[2019-05-22] MEDS: TAMSULOSIN 0.4 MG CAP.ER.24H. PO SCH (08:00)
[2019-05-22] MEDS: LACTOBACILLUS RHAMNOSUS GG 1 CAPSULE. PO SCH ×2 (08:00→20:31)
[2019-05-22] MEDS: ACETAMINOPHEN 325 MG TABLET PO SCH ×4 (08:00→20:35)
[2019-05-22] MEDS: PANTOPRAZOLE 40 MG TABLET. PO SCH (08:01)
[2019-05-22] MEDS: METOPROLOL TART IMMED RELEASE 25 MG TABLET PO SCH ×2 (08:01→20:31)
[2019-05-22] MEDS ORDERED: NON FORMULARY ITEM (Tiotropium Bromide (Spiriva) 1 CAP) IH SCH (09:00)
[2019-05-22] MEDS ORDERED: METOPROLOL TART IMMED RELEASE 50 MG TABLET PO SCH (09:00)
[2019-05-22 10:48] VITALS: BP 103/44
[2019-05-22 12:55] VITALS: BP 101/60
[2019-05-22] MEDS: ATORVASTATIN CALCIUM 20 MG TABLET PO SCH ×2 (13:00→20:31)
[2019-05-22] MEDS ORDERED: IV NORMAL SALINE 500ML 500 ML IV ONE (13:00)
[2019-05-22 16:00] VITALS: BP 126/69
[2019-05-22] MEDS ORDERED: CHOL400T36 PO (16:13)
[2019-05-22 19:07] VITALS: BP 106/58
[2019-05-22] MEDS: DRONEDARONE HCL 400 MG TABLET PO SCH (21:16)
--- NOTE | 2019-05-22 23:10 | PN ---
DATE: 05/21/2019 SUBJECTIVE: The patient is resting slightly propped up in bed, in no apparent respiratory distress. He continued to complain of weakness and shakiness; however, he is afebrile. His white cell count is within normal range and his blood culture showed growth of gram-positive cocci in pairs and chains suggestive of streptococcus in 4/4 bottles. When I saw him this morning, he looked well and was clearly in no apparent respiratory distress. No pallor, jaundice, cyanosis or thyromegaly. No jugular venous distention. No limb edema. OBJECTIVE: VITAL SIGNS: His heart rate was 93, blood pressure was 103/44, temperature was 97.8, respiratory rate was 20, and oxygen saturation was 91%. HEAD, EYES, EARS, NOSE AND THROAT: Showed normocephalic, atraumatic. NECK: Supple. HEART: Showed normal first and second heart sounds. No gallop, rub or murmur. CHEST: Clear to auscultation. No crepitation or rhonchi. ABDOMEN: Distended, soft, nontender. NEUROLOGIC: He was grossly intact. His intake over the last 24 hours and output were incompletely recorded. LABORATORY DATA: As of this morning showed a serum sodium 141, potassium 3.4, chloride 108, bicarbonate 26, anion gap of 7, BUN 15, creatinine 1.3, estimated GFR was 54 mL per minute. Glucose was 95, calcium was 7.6. Total bilirubin, AST is slightly elevated. ALT and alkaline phosphatase was normal. Total protein 6.2, albumin 2.6. His white cell count is 5700, hemoglobin 11.7, hematocrit 36, MCV 97, platelet count of 123,000. ASSESSMENT: Gram-positive bacteremia. The identification and sensitivity is still pending. Other medical problems include ____ the patient is hypotensive, hyperlipidemia, coronary artery disease, status post PCI with stent deployment. He has also coronary artery bypass graft surgery, atrial fibrillation/flutter, chronic obstructive pulmonary disease, obstructive sleep apnea, benign prostatic hypertrophy, generalized osteoarthritis and chronic low back pain. PLAN: My plan is to continue with IV antibiotic in the form of Zyvox and piperacillin/tazobactam. Await the result of the culture and sensitivity and we will deescalate once we have the result of the culture and sensitivity. Given his hypotension, I will hold his metoprolol and order a bolus of normal saline. BRISEIDA CA MD DR: RAYMOND/vladimir JOB#: [id number] / [id number]
[2019-05-22 23:21] VITALS: BP 124/66
[2019-05-23] MEDS: diphenhydrAMINE HCL 25 MG CAPSULE PO PRN ×2 (00:02→21:10)
[2019-05-23] MEDS: IPRATRPIUM/ALBUTEROL 0.5/2.5MG 3 ML NEBU. NEB SCH (04:58)
[2019-05-23 05:08] VITALS: BP 135/68
[2019-05-23] MEDS ORDERED: ACETAMINOPHEN 325 MG TABLET PO PRN (05:15)
[2019-05-23] MEDS: PIPERACILLIN/TAZOBACTAM 3.375 GM in IV NORMAL SALINE 50ML 50 ML IV SCH ×6 (05:40→23:47)
--- NOTE | 2019-05-23 08:08 | PDOC ---
CARDIO Progress Notes Date & Time Date of Service DATE: 05/23/19 TIME: 08:05 Time of Evaluation 08:05 Subjective Notes No chest pain, dizziness, diaphoresis, or palpitation. Vitals Vitals Vital Signs Date Time Temp Pulse Resp B/P (MAP) Pulse Ox O2 Delivery O2 Flow Rate FiO2 05/23/19 05:08 97.8 71 18 135/68 (90) 95 Room Air 05/21/19 11:11 2.0 Weight Weight [ ] Input and Output I.O. Intake and Output 05/23/19 07:00 Intake Total 1100 ml Balance 1100 ml Intake Oral 700 ml IV Total 400 ml # Voids 1 # Bowel Movements 1 Laboratory Labs Laboratory Tests Test 05/21/19 09:37 05/22/19 06:09 White Blood Count 9.3 x10^3/uL (4.0-11.0) 5.7 x10^3/uL (4.0-11.0) Red Blood Count 4.21 x10^6/uL (4.30-5.70) 3.73 x10^6/uL (4.30-5.70) Hemoglobin 13.4 g/dL (13.0-17.5) 11.7 g/dL (13.0-17.5) Hematocrit 40.5 % (39.0-53.0) 36.1 % (39.0-53.0) Mean Corpuscular Volume 96 fL (79-100) 97 fL (79-100) Mean Corpuscular Hemoglobin 32 pg (25-35) 32 pg (25-35) Mean Corpuscular Hemoglobin Concent 33 g/dL (31-37) 33 g/dL (31-37) Red Cell Distribution Width 14.0 % (11.5-14.5) 13.8 % (11.5-14.5) Platelet Count 150 x10^3/uL (140-400) 123 x10^3/uL (140-400) Neutrophils (%) (Auto) 73 % (31-73) 64 % (31-73) Lymphocytes (%) (Auto) 12 % (24-48) 20 % (24-48) Monocytes (%) (Auto) 14 % (0-9) 15 % (0-9) Eosinophils (%) (Auto) 0 % (0-3) 2 % (0-3) Basophils (%) (Auto) 0 % (0-3) 0 % (0-3) Neutrophils # (Auto) 6.8 x10^3uL (1.8-7.7) 3.6 x10^3uL (1.8-7.7) Lymphocytes # (Auto) 1.2 x10^3/uL (1.0-4.8) 1.1 x10^3/uL (1.0-4.8) Monocytes # (Auto) 1.3 x10^3/uL (0.0-1.1) 0.8 x10^3/uL (0.0-1.1) Eosinophils # (Auto) 0.0 x10^3/uL (0.0-0.7) 0.1 x10^3/uL (0.0-0.7) Basophils # (Auto) 0.0 x10^3/uL (0.0-0.2) 0.0 x10^3/uL (0.0-0.2) Sodium Level 138 mmol/L (136-145) 141 mmol/L (136-145) Potassium Level 4.1 mmol/L (3.5-5.1) 3.4 mmol/L (3.5-5.1) Chloride Level 103 mmol/L (98-107) 108 mmol/L (98-107) Carbon Dioxide Level 23 mmol/L (21-32) 26 mmol/L (21-32) Anion Gap 12 (6-14) 7 (6-14) Blood Urea Nitrogen 16 mg/dL (8-26) 15 mg/dL (8-26) Creatinine 1.5 mg/dL (0.7-1.3) 1.3 mg/dL (0.7-1.3) Estimated GFR (Cockcroft-Gault) 45.5 53.7 BUN/Creatinine Ratio 11 (6-20) 12 (6-20) Glucose Level 92 mg/dL (70-99) 95 mg/dL (70-99) Lactic Acid Level 1.6 mmol/L (0.4-2.0) Calcium Level 8.2 mg/dL (8.5-10.1) 7.6 mg/dL (8.5-10.1) Magnesium Level 1.9 mg/dL (1.8-2.4) Total Bilirubin 2.3 mg/dL (0.2-1.0) 1.2 mg/dL (0.2-1.0) Aspartate Amino Transf (AST/SGOT) 54 U/L (15-37) 40 U/L (15-37) Alanine Aminotransferase (ALT/SGPT) 34 U/L (16-63) 27 U/L (16-63) Alkaline Phosphatase 59 U/L (46-116) 49 U/L (46-116) Total Protein 7.1 g/dL (6.4-8.2) 6.2 g/dL (6.4-8.2) Albumin 3.4 g/dL (3.4-5.0) 2.6 g/dL (3.4-5.0) Albumin/Globulin Ratio 0.9 (1.0-1.7) 0.7 (1.0-1.7) Physical Exams HEENT: Neck Supple W Full Motion Chest: Symmetric Lungs: Other (fine expiratroy wheezing) Heart: S1S2, RRR Abdomen: Soft N/T Extremities: No Edema Neurology: alert, oriented, follow commands Assessment Assessment 1. Bacteremia; 4/4 + GPC suggesting strep 2. PAFIB; SR 3. CAD s/p CABG; clinically stable. CP free 4. SSS s/p PPM (Biotronik); download 05/21/19 shows 0% AFIB burden since 06/09/2017. Normal device function 5. Hypertension; controlled 6. Andrew improved 7. Hypokalemia 8. COPD Recommendations Ongoing antibiotic therapy Awaiting final ID, sensitivity Case was d/w ID at [place]; if strep B or enterococcus, will need to transfer to [facility] for JOSE LUIS to r/o endocarditis. Continue Multaq for rhyhtm maintenance. Pradaxa for stroke prophylaxis. Since on Multaq as well and CrCl is < 50, will decreased Pradaxa to 75mg BID per recommendations. GEORGE OCONNOR APRN May 23, 2019 08:08
[2019-05-23] MEDS: LACTOBACILLUS RHAMNOSUS GG 1 CAPSULE. PO SCH ×2 (08:09→21:10)
[2019-05-23] MEDS: PANTOPRAZOLE 40 MG TABLET. PO SCH (08:10)
[2019-05-23] MEDS: METOPROLOL TART IMMED RELEASE 25 MG TABLET PO SCH ×2 (08:10→21:10)
[2019-05-23] MEDS: DABIGATRAN ETEXILATE 150 MG CAPSULE. PO SCH (08:10)
[2019-05-23] MEDS: ASPIRIN 81 MG TAB.CHEW PO SCH (08:10)
[2019-05-23] MEDS: TAMSULOSIN 0.4 MG CAP.ER.24H. PO SCH (08:10)
[2019-05-23] MEDS: DRONEDARONE HCL 400 MG TABLET PO SCH ×2 (08:11→21:11)
[2019-05-23] MEDS ORDERED: NON FORMULARY ITEM (Omeprazole 1 CAP) PO SCH (09:00)
[2019-05-23] MEDS: NON FORMULARY ITEM (Tiotropium Bromide (Spiriva) 1 CAP) INH SCH (09:00)
[2019-05-23 10:18] VITALS: BP 124/71
--- NOTE | 2019-05-23 13:23 | EKG ---
[address] [address] Test Date: 2019-05-23 Test Time: 10:07:50 Pat Name: MELYSSA CHASE Department: Room: 103 A Gender: M Review Trainer: : 1945 Requested By: GEORGE OCONNOR Order Number: [id number] Reading MD: Measurements Intervals [place] Rate: 74 P: 45 ID: [id number] QRS: -36 QRSD: 132 T: -2 QT: 430 QTc: 478 Interpretive Statements SINUS RHYTHM ABNORMAL LEFT AXIS DEVIATION NON SPECIFIC INTRAVENTRICULAR BLOCK RVH WITH REPOLARIZATION ABNORMALITY QRS(T) CONTOUR ABNORMALITY CONSISTENT WITH INFERIOR INFARCT AGE UNDETERMINED ABNORMAL ECG RI6.02 No previous ECG available for comparison
[2019-05-23 15:16] VITALS: BP 115/69
--- NOTE | 2019-05-23 15:50 | PN ---
DATE: 05/23/2019 SUBJECTIVE: The patient is resting, slightly propped up in bed, in no apparent distress, awake, alert. On questioning, he denied any complaint. Nursing staff did not voice any concern. He is afebrile. His white cell count is normal and trending down, unfortunately, although his blood cultures grew Gram-positive cocci, the identification and sensitivity is still pending. PHYSICAL EXAMINATION: GENERAL: When I examined him this afternoon, he looked pale. No jaundice, cyanosis or thyromegaly. No jugular venous distension. No lower limb edema. VITAL SIGNS: Heart rate was 83, blood pressure was 124/71, temperature was 97.7, respiratory rate was 18 and oxygen saturation was 95% on room air. The rest of clinical exam is stable. No lab works available today. Apparently, he was seen by the Cardiology team and the plan was to await for the culture and sensitivity and he might require JOSE LUIS. ASSESSMENT: Gram-positive bacteremia. The identification and sensitivity still pending at the time of this dictation. OTHER MEDICAL PROBLEMS: Include: A. Hypertension that has improved. In fact, his blood pressure today is up to 124/71. He did receive 1 bolus of normal saline at 500 mL. B. Hyperlipidemia. C. Coronary artery disease, status post PCI with stent deployment and has also had coronary artery bypass graft surgery, atrial fibrillation/flutter, rate controlled, well anticoagulated on Pradaxa, chronic obstructive pulmonary disease and obstructive sleep apnea, benign prostatic hypertrophy, generalized osteoarthritis and chronic low back pain. PLAN: Continue with IV antibiotic and continue with Pradaxa. Continue with Multaq and once we have the identification and sensitivity, we will adjust antibiotic and decide on further management accordingly. BRISEIDA CA MD DR: RAYMOND/vladimir JOB#: [id number] / [id number]
[2019-05-23] MEDS ORDERED: ALBUTEROL INHALER INH PRN (18:30)
[2019-05-23 19:10] VITALS: BP 132/74
--- NOTE | 2019-05-23 19:18 | PDOC ---
PROVIDER NOTE PROVIDER NOTE PROVIDER NOTE Late entry for 05/22/2019 Cardiology consultation note Reason for consultation pacemaker with bacteremia History of present illness 74-year-old man with past medical history of ischemic cardio myopathy and a history of pacemaker presented to the hospital in the setting of fatigue and weakness. He's been found to have 4 out of 4 blood culture sets positive for possible streptococcus species. Antibiotics are ongoing. He currently denies any chest pain, dyspnea, orthopnea or PND. He has been slightly worried about his palpitations recently. Recent device check has not revealed any pathology. Past medical history Status post dual-chamber pacemaker, history of tachybradycardia syndrome Atrial fibrillation Hypertension Dyslipidemia Coronary artery disease status post bypass Social history patient denies any alcohol, tobacco or illicit drug use Allergies reviewed Current cardiac vascular medications per the medication administration record Family history is noncontributory Review systems is notable in that the patient has been fatigued and according to family was also slightly confused prior to admission The patient appeared well nourished and normally developed. Head exam is unremarkable. No scleral icterus or corneal arcus noted. Neck is without jugular venous distension, thyromegaly, or carotid bruits. Carotid upstrokes are brisk bilaterally. Lungs are clear to auscultation and percussion. Cardiac exam reveals the PMI to be normally sized and situated. Rhythm is regular. First and second heart sounds normal. No murmurs, rubs or gallops. Abdominal exam reveals normal bowel sounds, no masses, no organomegaly and no aortic enlargement. Extremities are nonedematous and both femoral and pedal pulses are normal. Msk: No traumua Neuro: No focal deficits No obvious murmurs noted Laboratory studies reviewed and blood culture results noted Impression: 1. Streptococcus bacteremia, speciation pending 2. Multiple cardiovascular comorbidities currently stable as noted above Recommendations: 1. Continue home cardiovascular medications as a patient appears to be currently euvolemic and without any evidence of shock Based on the speciation of the Streptococcus in the blood he may ultimately need a JOSE LUIS to rule out any vegetation on the valves and the pacemaker. Thank you for this consultation. We will follow along closely. GERRY DOMINGUEZ MD May 23, 2019 19:18
[2019-05-23] MEDS: ATORVASTATIN CALCIUM 20 MG TABLET PO SCH (21:10)
[2019-05-23] MEDS: DABIGATRAN ETEXILATE 75 MG CAPSULE. PO SCH (21:11)
[2019-05-23 22:11] VITALS: BP 128/81
[2019-05-24 05:13] VITALS: BP 114/71
[2019-05-24] MEDS: PIPERACILLIN/TAZOBACTAM 3.375 GM in IV NORMAL SALINE 50ML 50 ML IV SCH ×3 (05:49→17:40)
[2019-05-24 06:43] LABS: HEMATOCRIT 35.9 % (39.0-53.0); HEMOGLOBIN 11.8 g/dL (13.0-17.5); RED BLOOD COUNT 3.7 x10^6/uL (4.30-5.70); WHITE BLOOD COUNT 4.5 x10^3/uL (4.0-11.0)
[2019-05-24 06:51] LABS: ALBUMIN 2.6 g/dL (3.4-5.0); ALBUMIN/GLOBULIN RATIO 0.7 (1.0-1.7); CALCIUM 7.9 mg/dL (8.5-10.1); CREATININE 1.1 mg/dL (0.7-1.3); GFR 65.1; POTASSIUM 3.8 mmol/L (3.5-5.1); TOTAL BILIRUBIN 0.9 mg/dL (0.2-1.0); TOTAL PROTEIN 6.2 g/dL (6.4-8.2)
[2019-05-24] MEDS: NON FORMULARY ITEM (Tiotropium Bromide (Spiriva) 1 CAP) INH SCH ×2 (08:35→22:03)
[2019-05-24] MEDS: DABIGATRAN ETEXILATE 75 MG CAPSULE. PO SCH ×2 (08:36→21:58)
[2019-05-24] MEDS: LACTOBACILLUS RHAMNOSUS GG 1 CAPSULE. PO SCH ×2 (08:36→21:58)
[2019-05-24] MEDS: TAMSULOSIN 0.4 MG CAP.ER.24H. PO SCH (08:36)
[2019-05-24] MEDS: PANTOPRAZOLE 40 MG TABLET. PO SCH (08:36)
[2019-05-24] MEDS: ASPIRIN 81 MG TAB.CHEW PO SCH (08:36)
[2019-05-24] MEDS: METOPROLOL TART IMMED RELEASE 25 MG TABLET PO SCH ×2 (08:36→21:58)
[2019-05-24] MEDS: DRONEDARONE HCL 400 MG TABLET PO SCH ×2 (08:37→21:57)
[2019-05-24 10:45] VITALS: BP 112/71
--- NOTE | 2019-05-24 12:05 | PDOC ---
CARDIO Progress Notes Date & Time Date of Service DATE: 05/24/19 TIME: 12:03 Time of Evaluation 12:03 Vitals Vitals Vital Signs Date Time Temp Pulse Resp B/P (MAP) Pulse Ox O2 Delivery O2 Flow Rate FiO2 05/24/19 10:45 97.7 77 20 112/71 (85) 93 Room Air 05/21/19 11:11 2.0 Weight Weight [ ] Input and Output I.O. Intake and Output 05/24/19 07:00 Intake Total 1650 ml Balance 1650 ml Intake Oral 1200 ml IV Total 450 ml # Voids 6 # Bowel Movements 1 Laboratory Labs Laboratory Tests Test 05/23/19 08:35 05/24/19 05:52 Magnesium Level 1.9 mg/dL (1.8-2.4) White Blood Count 4.5 x10^3/uL (4.0-11.0) Red Blood Count 3.70 x10^6/uL (4.30-5.70) Hemoglobin 11.8 g/dL (13.0-17.5) Hematocrit 35.9 % (39.0-53.0) Mean Corpuscular Volume 97 fL (79-100) Mean Corpuscular Hemoglobin 32 pg (25-35) Mean Corpuscular Hemoglobin Concent 33 g/dL (31-37) Red Cell Distribution Width 14.0 % (11.5-14.5) Platelet Count 163 x10^3/uL (140-400) Erythrocyte Sedimentation Rate 42 (0-15) Sodium Level 143 mmol/L (136-145) Potassium Level 3.8 mmol/L (3.5-5.1) Chloride Level 110 mmol/L (98-107) Carbon Dioxide Level 24 mmol/L (21-32) Anion Gap 9 (6-14) Blood Urea Nitrogen 9 mg/dL (8-26) Creatinine 1.1 mg/dL (0.7-1.3) Estimated GFR (Cockcroft-Gault) 65.1 BUN/Creatinine Ratio 8 (6-20) Glucose Level 83 mg/dL (70-99) Calcium Level 7.9 mg/dL (8.5-10.1) Total Bilirubin 0.9 mg/dL (0.2-1.0) Aspartate Amino Transf (AST/SGOT) 66 U/L (15-37) Alanine Aminotransferase (ALT/SGPT) 52 U/L (16-63) Alkaline Phosphatase 54 U/L (46-116) C-Reactive Protein 40.1 mg/L (0-3.3) Total Protein 6.2 g/dL (6.4-8.2) Albumin 2.6 g/dL (3.4-5.0) Albumin/Globulin Ratio 0.7 (1.0-1.7) Physical Exams HEENT: Neck Supple W Full Motion Chest: Symmetric Lungs: Other (fine expiratroy wheezing) Heart: S1S2, RRR Abdomen: Soft N/T Extremities: No Edema Neurology: alert, oriented, follow commands Assessment Assessment 1. Bacteremia; 4/4 + GPC suggesting strep 2. PAFIB; SR 3. CAD s/p CABG; clinically stable. CP free 4. SSS s/p PPM (Biotronik); download 05/21/19 shows 0% AFIB burden since 06/09/2017. Normal device function 5. Hypertension; controlled 6. Andrew improved 7. COPD Recommendations Ongoing antibiotic therapy Awaiting final ID, sensitivity If strep B or enterococcus, will need to transfer to [facility] for JOSE LUIS to r/o endocarditis. Risks/benefits/alternatives were discussed with patient and he is agreeable if warranted Continue Multaq for rhyhtm maintenance. Pradaxa for stroke prophylaxis Supportive care GEORGE OCONNOR APRN May 24, 2019 12:05
[2019-05-24 14:56] VITALS: BP 107/69
[2019-05-24 18:34] VITALS: BP 141/82
[2019-05-24 19:50] VITALS: BP 117/72
[2019-05-24] MEDS: diphenhydrAMINE HCL 25 MG CAPSULE PO PRN (21:58)
[2019-05-24] MEDS: ATORVASTATIN CALCIUM 20 MG TABLET PO SCH (22:00)
[2019-05-24 23:10] VITALS: BP 122/68
--- NOTE | 2019-05-25 00:16 | PN ---
DATE: 05/24/2019 SUBJECTIVE: The patient is resting, slightly propped up in bed, in no apparent respiratory distress, he denied any complaint. The nursing staff did not voice any concern and stated he has had generally uneventful night. PHYSICAL EXAMINATION: GENERAL: When I examined him, he looked well and was clearly in no apparent respiratory distress. No pallor, jaundice, cyanosis or thyromegaly. No jugular venous distention. No lower limb edema. VITAL SIGNS: His heart rate was 77, blood pressure was 112/71, temperature was 97.7, respiratory rate 20, and oxygen saturation was 93%. HEAD, EYES, EARS, NOSE AND THROAT: Normocephalic, atraumatic. NECK: Supple. HEART: Showed normal first and second heart sounds. No gallop or murmur. CHEST: Clear to auscultation. No crepitation or rhonchi. ABDOMEN: Distended, soft, nontender. No guarding or rigidity. No organomegaly. All hernial orifice intact. Bowel sounds normal. NEUROLOGIC: He is awake, alert, responding appropriately. All cranial nerves are intact. He moves extremities without difficulty. His intake is 1100, no output was recorded. LABORATORY DATA: His lab work this morning showed a serum sodium 143, potassium 3.8, chloride 110, bicarbonate 24, anion gap of 9, BUN 9, creatinine 1.1, estimated GFR was 65 mL per minute. His glucose was 83, calcium was 7.9. Total bilirubin, ALT, alkaline phosphatase normal. AST slightly elevated. His total protein was 6.2, albumin 2.6 and his C-reactive protein was 40 mg/dL. His sedimentation rate was 42. His blood culture grew Enterococcus faecalis, the sensitivity is still pending at the time of this dictation. BRISEIDA CA MD DR: RAYMOND/vladimir JOB#: [id number] / [id number]
[2019-05-25] MEDS: PIPERACILLIN/TAZOBACTAM 3.375 GM in IV NORMAL SALINE 50ML 50 ML IV SCH ×3 (06:00)
[2019-05-25 06:26] VITALS: BP 121/67
[2019-05-25] MEDS: DRONEDARONE HCL 400 MG TABLET PO SCH (07:28)
[2019-05-25] MEDS: DABIGATRAN ETEXILATE 75 MG CAPSULE. PO SCH (07:29)
[2019-05-25] MEDS: TAMSULOSIN 0.4 MG CAP.ER.24H. PO SCH (07:30)
[2019-05-25] MEDS: PANTOPRAZOLE 40 MG TABLET. PO SCH (07:30)
[2019-05-25] MEDS: ASPIRIN 81 MG TAB.CHEW PO SCH (07:30)
[2019-05-25] MEDS: LACTOBACILLUS RHAMNOSUS GG 1 CAPSULE. PO SCH (07:30)
[2019-05-25 07:31] VITALS: BP 121/67
[2019-05-25] MEDS: METOPROLOL TART IMMED RELEASE 25 MG TABLET PO SCH (07:31)
== END 2019-05-25 09:10 | disposition short-term general hospital (02) | DRG 683 ==
LOC: ER 09:22 → 1 SOUTH 09:45 → ER 11:17
PROVIDERS: ADMIT Internal Medicine; ATTEND Internal Medicine
DX: N17.9 Acute kidney failure, unspecified (principal); R78.81 Bacteremia; I48.92 Unspecified atrial flutter; B96.89 Other specified bacterial agents as the cause of diseases classified elsewhere; B95.2 Enterococcus as the cause of diseases classified elsewhere; K80.20 Calculus of gallbladder without cholecystitis without obstruction; E78.00 Pure hypercholesterolemia, unspecified; E78.5 Hyperlipidemia, unspecified; E86.0 Dehydration; E87.6 Hypokalemia; G47.33 Obstructive sleep apnea (adult) (pediatric); G89.29 Other chronic pain; I10 Essential (primary) hypertension; I25.10 Atherosclerotic heart disease of native coronary artery without angina pectoris; I48.91 Unspecified atrial fibrillation; J44.9 Chronic obstructive pulmonary disease, unspecified; K44.9 Diaphragmatic hernia without obstruction or gangrene; K57.90 Diverticulosis of intestine, part unspecified, without perforation or abscess without bleeding; M15.9 Polyosteoarthritis, unspecified; N40.0 Benign prostatic hyperplasia without lower urinary tract symptoms; Z82.3 Family history of stroke; Z82.5 Family history of asthma and other chronic lower respiratory diseases; Z87.891 Personal history of nicotine dependence; Z95.0 Presence of cardiac pacemaker; Z95.1 Presence of aortocoronary bypass graft; Z95.5 Presence of coronary angioplasty implant and graft; K21.9 Gastro-esophageal reflux disease without esophagitis; Z88.8 Allergy status to other drugs, medicaments and biological substances
CPT/HCPCS: 36415; 80053; 83605; 83735; 85025; 85027; 85651; 86140; 93005; 93306; 94640; 96365; 96375; J0696; J2020; J2405; J2543; J7040; J7620; Q0162; Q0163; 97116; 97530; 97535; 99285-25; J7030

== ENCOUNTER → 2020-06-04 | Outpatient (CLI) | payer MEDICARE ==
[2019-06-24 20:07] VITALS: BP 135/75
[~2020-06-04] MED LIST changes: -AMIO200T4 PO; +AMIO200T6 PO; +ATOR20TA58 PO; +CHOL400T36 PO; +DRON400T PO; -LISI-338 PO; +LISI-517 PO; +MELA3TAB4 PO; -MELA3TAB56 PO; +OMEP20CA16 PO; +TAMS0.4C97 PO; +TIOT18CA IH
--- NOTE | 2020-06-05 07:55 | RAD ---
EXAM: CT Lung Cancer Screening Chest without IV contrast INDICATION: Lung cancer screening. History of nicotine dependence. [ TECHNIQUE: Multi-detector row low dose CT images were acquired from the thoracic inlet through the up per abdomen without the use of IV contrast. Scanning parameters were adjusted for evaluation of lung parenchyma for developing lung carcinoma with limited patient exposure. Sagittal and coronal images w ere acquired from the transaxial data. All CT scans performed at this facility utilize dose optimizat ion techniques as appropriate to the exam, including the following: Automated exposure control and ad justment of the mA and/or KV according to patient size (this includes techniques or standardized prot ocols for targeted exams where dose is indication/reason for exam). COMPARISON: CT abdomen and pelvis without IV contrast of 05/20/2019. Retroperitoneal ultrasound of 05/04. FINDINGS: The absence of IV contrast limits evaluation of soft tissue pathology. CARDIOVASCULAR: Unremarkable. MEDIASTINUM & RICKIE: No adenopathy or masses. LUNGS: There are 2 pulmonary nodules, both in the left lower lobe. More medially and posteriorly, a 4 .5 mm nodule (image 195 series 2) is present. Slightly more inferiorly and laterally, a 5 mm nodule ( image 202 of series 2) is present. PLEURAL SPACE: No pleural effusions. No pneumothorax. OSSEOUS & SOFT TISSUES: Post CABG sternotomy surgical changes are present along with a left chest elizabeth l-chamber pacemaker. Degenerative changes in the thoracic spine. ABDOMEN: Partially imaged left renal 5 cm mass with a density of 39 Hu. This was previously character ized as a cyst. It had Hounsfield density previously close to 0 on abdomen and pelvis CT of 05/20/2019 . It may have hemorrhaged. Consider renal mass protocol CT or ultrasound in follow-up, preferably wit hin the next 3 months. Lung-RADS ASSESSMENT: LUNG-RADS CATEGORY 2: Benign Appearance or Behavior/Nodules with a very low likelihood of becoming a clinically active cancer due to size or lack of growth. -- Continue annual screening with LDCT in 12 months. E3: Soft tissue structures and skeletal structures other than the lungs contain likely unimportant f indings further work up as recommended above IMPRESSION: Benign findings on CT lung cancer screening with incidental possible hemorrhagic left renal cyst. [facility] renal mass protocol CT or ultrasound in follow-up within 3 months. Electronically signed by: Mayte Charles MD (06/05/2020 7:53 AM) [id number]
== END ==
LOC: CT 11:26
PROVIDERS: ATTEND Family Medicine
DX: K26.7 Chronic duodenal ulcer without hemorrhage or perforation (principal); Z87.891 Personal history of nicotine dependence
CPT/HCPCS: 71271

== ENCOUNTER → 2021-05-11 | Outpatient (CLI) | payer MEDICARE ==
[2019-06-24 20:07] VITALS: BP 135/75
[~2021-05-11] MED LIST changes: +AMIO200T54 PO; -AMIO200T6 PO; -DRON400T PO; +DRON400T6 PO; -LISI-517 PO; +LISI5TAB15 PO
--- NOTE | 2021-05-12 10:37 | CARD ---
MR#: [id number] Date of Study: 05/11/2021 Ordering Physician: FOREIGN GREER, Referring Physician: FOREIGN GREER, Tech: Berenice Zach, [facility] APPROVED REPORT EXAM: Two-dimensional and M-mode echocardiogram with Doppler and color Doppler. Other Information Quality : AverageHR: 76bpm Rhythm : NSRAtrial FibrillationAtrial Flutter INDICATION COPD Murmur Surgery/Intervention Pacemaker: Date: 2015 2D DIMENSIONS Left Atrium(2D)3.4 (1.6-4.0cm)IVSd1.1 (0.7-1.1cm) Aortic Root(2D)3.3 (2.0-3.7cm)LVDd4.3 (3.9-5.9cm) LVOT Diameter2.1 (1.8-2.4cm)PWd1.0 (0.7-1.1cm) LVDs2.6 (2.5-4.0cm)FS (%) 39.9 % SV57.6 ml Aortic Valve AoV Peak Mike.110.4cm/sAoV VTI21.0cm AO Peak GR.4.9mmHgLVOT Peak Mike.93.1cm/s LVOT VTI 15.15cmAO Mean GR.2mmHg BETTE (VMAX)2.42lm3HVR (VTI)2.51cm2 Mitral Valve MV E Hjsavkor65.1cm/sMV E Peak Gr.2mmHg MV DECEL [id number] A Pctmpdwj81.6cm/s MV E Mean Gr.1mmHgE/A Ratio0.7 Pulmonary Valve PV Peak Pkscvwhw08.5cm/sPV Peak Grad.4mmHg Tricuspid Valve TR P. [id number]/sRAP [id number] TR Peak Gr.75kgGbLQNW70csTs LEFT VENTRICLE The left ventricle is normal size. There is borderline concentric left ventricular hypertrophy. The l eft ventricular systolic function is normal and the ejection fraction is within normal range. The Eje ction Fraction is 55-60%. There is normal LV segmental wall motion. Transmitral Doppler flow pattern is Grade I-abnormal relaxation pattern. RIGHT VENTRICLE The right ventricle is normal size. There is normal right ventricular wall thickness. The right ventr icular systolic function is normal. ATRIA The left atrium is mildly dilated. The right atrium is borderline dilated. The interatrial septum is intact with no evidence for an atrial septal defect or patent foramen ovale as noted on 2-D or Dopple r imaging. AORTIC VALVE The aortic valve is normal in structure and function. Doppler and Color Flow revealed no significant aortic regurgitation. There is no significant aortic valvular stenosis. Calculated aortic valve area is 3.3 cm2 with maximum pressure gradient of 5 mmHg and mean pressure gradient of 2 mmHg. MITRAL VALVE The mitral valve is normal in structure and function. There is no evidence of mitral valve prolapse. There is no mitral valve stenosis. Doppler and Color Flow revealed no mitral valve regurgitation note d. TRICUSPID VALVE The tricuspid valve is normal in structure and function. Doppler and Color Flow revealed trace tricus pid regurgitation with an estimated PAP of 31 mmHg. There is no tricuspid valve stenosis. PULMONIC VALVE The pulmonic valve is not well visualized. Doppler and Color Flow revealed trace pulmonic valvular re gurgitation. GREAT VESSELS The aortic root is normal in size. The IVC is normal in size and collapses >50% with inspiration. PERICARDIAL EFFUSION There is no evidence of significant pericardial effusion. Critical Notification Critical Value: No <Conclusion> The left ventricle is normal size. The left ventricular systolic function is normal and the ejection fraction is within normal range. The Ejection Fraction is 55-60%. There is borderline concentric left ventricular hypertrophy. Doppler and Color Flow revealed no significant aortic regurgitation. There is no significant aortic valvular stenosis. Calculated aortic valve area is 3.3 cm2 with maximum pressure gradient of 5 mmHg and mean pressure gr adient of 2 mmHg. Doppler and Color Flow revealed no mitral valve regurgitation noted. Doppler and Color Flow revealed trace tricuspid regurgitation with an estimated PAP of 31 mmHg. Signed by : Foreign Greer MD Electronically Approved : 05/12/2021 10:36:53
== END ==
LOC: ECHO 08:50
PROVIDERS: ATTEND Internal Medicine Cardiovascular Disease
DX: R01.1 Cardiac murmur, unspecified (principal); J44.9 Chronic obstructive pulmonary disease, unspecified; Z95.1 Presence of aortocoronary bypass graft
CPT/HCPCS: 93306